=== PATIENT | male | born 1945 | race Caucasian/White ===

== ENCOUNTER 2025-06-24 15:02 | Inpatient (IN) ==
[2025-06-24 15:40] LABS: Hematocrit (blood only) 37.1 % (42.0-52.0); Hemoglobin 12.6 g/dl (14.0-18.0); Immature Granulocytes # (auto) 0.33 K/uL (0.01-0.20); Immature Granulocytes % (auto) 1.5 %; Mean Corpuscular Hemoglobin 30.3 pg (25.0-34.0); Mean Corpuscular Volume 89.2 fL (80.0-100.0); Platelet Count 249 K/uL (130-400); RDW Standard Deviation 46.0 fL (36.4-46.3); Red Blood Count 4.16 M/uL (4.70-6.10); White Blood Count 22.46 K/ul (4.8-10.8)
--- NOTE | 2025-06-24 15:40 | Emergency Department Note ---
Impression & Plan AMS (altered mental status), Hypoxia, SAVANNAH (acute kidney injury), Acute UTI (urinary tract infection), Hyponatremia ED Provider Note ED Provider Note NAME: KURT KENT AGE:80 SEX: Male : 1945 ARRIVES VIA: private vehicle INFORMANT: Patient, ED PROVIDER(s): Miya Ceballos DO CHIEF COMPLAINT: confusion HPI: This is a 80-year-old male brought in by his due to concern for worsening confusion and fatigue over the last 2 to 3 days. She states patient does occasionally fall although she had not witnessed any falls. She states today the confusion seemed worse and he did not recognize one of his grandchildren, and he seemed to be hallucinating. She states he was ill with a bad cold approximately 3 to 4 weeks ago but she thought that had improved. She had not noticed any recent respiratory distress. 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 She states he had not complained of anything recently. She states he also has a history of seizures for which he takes Keppra. She notes he has previously had hyponatremia as well. On arrival here patient notes his , knows he is at the "[facility]", and notes his own personal information. notes that he did have a recent dental cleaning and did take 4 tablets of amoxicillin prior to the cleaning which is his protocol. PAST MEDICAL HISTORY:See Below PAST SURGICAL HISTORY:See Below FAMILY HISTORY:See Below SOCIAL HISTORY:See Below HOME MEDICATIONS:See Below ALLERGIES:See Below VITALS:See Below PHYSICAL EXAMINATION: GENERAL: alert, well appearing, well nourished, no distress, non-toxic EYE EXAM: normal conjunctiva, PERRL and EOM's grossly intact OROPHARYNX: no exudate, no erythema, lips, buccal mucosa, and tongue normal and mucous membranes are dry NECK: supple, no nuchal rigidity, no adenopathy, non-tender LUNGS: Clear to auscultation. Normal chest wall mechanics, no w/r/r HEART: no murmurs, S1 normal and S2 normal ABDOMEN: abdomen soft, non-tender, normo-active bowel sounds, no masses, no rebound or guarding. BACK: Back is symmetrical on inspection and there is no deformity, no midline tenderness, no CVA tenderness. SKIN: no rashes, petechiae, orbruising UPPER EXTREMITIES: upper extremities are grossly normal. FROM, nml pulses b/l. LOWER EXTREMITIES: No pitting edema. FROM, nml pulses b/l. NEURO EXAM: Normal sensorium, cranial nerves II-XII grossly intact, normal speech, no facial droop,nogross weakness of arms, no gross weakness of legs. Gross sensation intact. No ataxia. Vital Signs: reviewed and remarkable Differential Diagnosis: dehydration, stroke, anemia, hypoglycemia, hyponatremia, hypernatremia, urinary tract infection, pneumonia, bronchitis, sepsis, gastroenteritis, additional abdominal pathology, metabolic abnormalities, as well as others were considered MEDICAL DECISION MAKING: This is a 80-year-old male presents to the emergency department due to concern for increased weakness, fatigue, and intermittent confusion per the . Patient unable to provide much history here although does deny any current pain, nausea, headache, or difficulty breathing. Patient noted to be tachycardic, tachypneic, and initially hypoxic. Once placed in bed, patient's hypoxia improved and he did not require any further oxygen supplementation. He was noted to be in atrial fibrillation on telemetry which the states is normal for him and he is anticoagulated. Labs drawn and sent including cultures, procalcitonin, lactic acid, IV established, EKG and chest x-ray performed at bedside and interpreted by me and the patient was monitored on telemetry. Patient was started on IV fluids per sepsis protocol. He was sent for CT of the head due to the reported confusion and concern for occult unwitnessed trauma. Patient noted to have acute kidney injury. CT of the abdomen and pelvis also performed once SAVANNAH was noted. Patient did receive 30 mL/KG of IV fluids. He was noted to have an elevated lactic acid, elevated procalcitonin, and significant leukocytosis. He was given empiric dose of IV cefepime. Patient was maintaining his MAP despite having soft blood pressures while in the emergency department. Heart rate improved. Repeat lactic acid was improved. Eventually urine was obtained and the patient did appear to be infected. Patient's family updated multiple times at bedside including and son. I did discuss case with on-call urology who is some to review the CT as well as radiology was concern for possible occult ureterolithiasis versus phlebolith on their radiology report. He did review the CT and we were able to find prior imaging in the [facility] system with the assistance of case mgmt for comparison and no prior nephrolithiasis noted. Case discussed with the hospitalist team for additional evaluation and management. Consultation(s): 1929: Discussed with Dr. Kwon, urology, via [facility]. 1956: Discussed with Dr. Merritt, [facility] hospitalist, for additional evaluation and management. ER Treatment Provided: See below Diagnostics Interpreted By Me: -ECG: Atrial fibrillation with a rate of 131, leftward axis, normal intervals, nonspecific ST/T wave changes -Cardiac Monitoring: An order was placed for continuous cardiac monitoring. The monitor shows a rate of 112 with a.fib rhythm. -Laboratory studies: As stated above and show below. -Imaging studies: ct head: no ich X-ray Chest: A single view study of the chest was reviewed and was negative for cardiomegaly, focal infiltrate, effusion, pulmonary edema, or wide mediastinum. Triage Nursing Note Reviewed Prior/Outside Records Reviewed -prior labs from 04/01/2025 at that time show a creatinine at 1.2. Critical Care: Critical care of 52 min performed to assess and manage high likelihood of life-threatening sepsis, involving labs and imaging performed with assessment to evaluate ams and weakness diagnosis with frequent reassessment. This time includes bedside time, treatment discussions with patient/family/consultants, documentation time and excludes procedure time. Past Med/Surg History Problem List (Updated 06/24/25 @ 22:07 by Miya Ceballos, ) Hyponatremia (Acute) Acute UTI (urinary tract infection) (Acute) SAVANNAH (acute kidney injury) (Acute) Hypoxia (Acute) AMS (altered mental status) (Acute) Social History Smoking Status: Never smoker Preferred Language: Andorran Feels Safe at Home: Yes Allergies Allergies Allergy/AdvReac Type Severity Reaction Status Date / Time No Known Allergies Allergy Unverified 06/24/25 15:45 Home Meds Home Medications Medication Instructions Recorded Confirmed apixaban 5 mg tablet (Eliquis) 5 mg PO BID 06/24/25 06/24/25 digoxin 125 mcg (0.125 mg) tablet 0.125 mg PO UD 06/24/25 06/24/25 famotidine 20 mg tablet 20 mg PO DAILY 06/24/25 06/24/25 furosemide 20 mg tablet 20 mg PO DAILY 06/24/25 06/24/25 levetiracetam 750 mg tablet 750 mg PO BID 06/24/25 06/24/25 levothyroxine 50 mcg tablet 50 mcg PO DAILY 06/24/25 06/24/25 lisinopril 5 mg tablet 5 mg PO DAILY 06/24/25 06/24/25 methotrexate sodium 2.5 mg tablet 2.5 mg PO UD 06/24/25 06/24/25 rosuvastatin 10 mg tablet 10 mg PO DAILY 06/24/25 06/24/25 Results & Data (ED) Vital Signs Vital Signs - 24 hr 06/24/25 15:07 06/24/25 15:48 06/24/25 16:04 Temperature 37.7 C H Temperature Source Oral Pulse Rate 133 H 101 H Pulse Rate [Apical] Pulse Rate from SpO2 Sensor Respiratory Rate 20 34 H Respiratory Effort / Characteristics Non-Labored Spontaneous Respiratory Depth Normal Blood Pressure 114/74 92/64 L Blood Pressure Mean 87 73 Pulse Oximetry 88 L 98 Oxygen Delivery Method Room Air Room Air Sepsis Recent Fever Within 48 Hours Yes Sepsis New/Unexplained Change in Mental Status Yes Sepsis Action Taken by Nursing Physician Notified 06/24/25 16:05 06/24/25 16:12 06/24/25 16:15 Temperature Temperature Source Pulse Rate 104 H 109 H Pulse Rate [Apical] Pulse Rate from SpO2 Sensor 114 H 180 H Respiratory Rate 33 H 32 H Respiratory Effort / Characteristics Respiratory Depth Blood Pressure Blood Pressure Mean Pulse Oximetry 97 95 84 L Oxygen Delivery Method Room Air Sepsis Recent Fever Within 48 Hours Sepsis New/Unexplained Change in Mental Status Sepsis Action Taken by Nursing 06/24/25 16:15 06/24/25 16:15 06/24/25 16:18 Temperature Temperature Source Pulse Rate 104 H Pulse Rate [Apical] Pulse Rate from SpO2 Sensor Respiratory Rate Respiratory Effort / Characteristics Respiratory Depth Blood Pressure 99/67 L 99/67 L Blood Pressure Mean 73 73 Pulse Oximetry Oxygen Delivery Method Sepsis Recent Fever Within 48 Hours Sepsis New/Unexplained Change in Mental Status Sepsis Action Taken by Nursing 06/24/25 16:24 06/24/25 16:46 06/24/25 16:46 Temperature Temperature Source Pulse Rate 93 H Pulse Rate [Apical] Pulse Rate from SpO2 Sensor 109 H Respiratory Rate 33 H Respiratory Effort / Characteristics Respiratory Depth Blood Pressure 95/66 L 95/66 L Blood Pressure Mean 79 79 Pulse Oximetry 87 L Oxygen Delivery Method Sepsis Recent Fever Within 48 Hours Sepsis New/Unexplained Change in Mental Status Sepsis Action Taken by Nursing 06/24/25 16:51 06/24/25 17:00 06/24/25 17:00 Temperature Temperature Source Pulse Rate Pulse Rate [Apical] Pulse Rate from SpO2 Sensor 101 H Respiratory Rate Respiratory Effort / Characteristics Respiratory Depth Blood Pressure 96/64 L 96/64 L Blood Pressure Mean 72 72 Pulse Oximetry 99 Oxygen Delivery Method Sepsis Recent Fever Within 48 Hours Sepsis New/Unexplained Change in Mental Status Sepsis Action Taken by Nursing 06/24/25 17:00 06/24/25 17:09 06/24/25 17:10 Temperature 39.3 C H Temperature Source Oral Pulse Rate 106 H Pulse Rate [Apical] Pulse Rate from SpO2 Sensor 105 H Respiratory Rate 35 H Respiratory Effort / Characteristics Respiratory Depth Blood Pressure 96/64 L Blood Pressure Mean 72 Pulse Oximetry 100 Oxygen Delivery Method Sepsis Recent Fever Within 48 Hours Sepsis New/Unexplained Change in Mental Status Sepsis Action Taken by Nursing 06/24/25 17:12 06/24/25 17:27 06/24/25 17:30 Temperature Temperature Source Pulse Rate 104 H 95 H Pulse Rate [Apical] Pulse Rate from SpO2 Sensor 94 H 101 H Respiratory Rate 34 H 33 H Respiratory Effort / Characteristics Respiratory Depth Blood Pressure 95/65 L Blood Pressure Mean 70 Pulse Oximetry 100 98 Oxygen Delivery Method Sepsis Recent Fever Within 48 Hours Sepsis New/Unexplained Change in Mental Status Sepsis Action Taken by Nursing 06/24/25 17:42 06/24/25 17:54 06/24/25 17:57 Temperature Temperature Source Pulse Rate 98 H 93 H 102 H Pulse Rate [Apical] Pulse Rate from SpO2 Sensor 101 H 99 H 99 H Respiratory Rate 30 H 33 H 34 H Respiratory Effort / Characteristics Respiratory Depth Blood Pressure Blood Pressure Mean Pulse Oximetry 97 97 98 Oxygen Delivery Method Sepsis Recent Fever Within 48 Hours Sepsis New/Unexplained Change in Mental Status Sepsis Action Taken by Nursing 06/24/25 18:00 06/24/25 18:00 06/24/25 18:00 Temperature Temperature Source Pulse Rate Pulse Rate [Apical] Pulse Rate from SpO2 Sensor Respiratory Rate Respiratory Effort / Characteristics Respiratory Depth Blood Pressure 84/56 L 84/56 L 84/56 L Blood Pressure Mean 61 61 61 Pulse Oximetry Oxygen Delivery Method Sepsis Recent Fever Within 48 Hours Sepsis New/Unexplained Change in Mental Status Sepsis Action Taken by Nursing 06/24/25 18:00 06/24/25 18:03 06/24/25 18:05 Temperature Temperature Source Pulse Rate 94 H Pulse Rate [Apical] Pulse Rate from SpO2 Sensor 96 H Respiratory Rate 29 H Respiratory Effort / Characteristics Respiratory Depth Blood Pressure 84/56 L 90/63 L Blood Pressure Mean 61 74 Pulse Oximetry 97 Oxygen Delivery Method Sepsis Recent Fever Within 48 Hours Sepsis New/Unexplained Change in Mental Status Sepsis Action Taken by Nursing 06/24/25 18:05 06/24/25 18:06 06/24/25 18:13 Temperature 37.8 C H Temperature Source Oral Pulse Rate 85 Pulse Rate [Apical] 88 Pulse Rate from SpO2 Sensor 87 Respiratory Rate 30 H Respiratory Effort / Characteristics Respiratory Depth Blood Pressure 90/63 L Blood Pressure Mean 74 Pulse Oximetry 97 Oxygen Delivery Method Sepsis Recent Fever Within 48 Hours Sepsis New/Unexplained Change in Mental Status Sepsis Action Taken by Nursing 06/24/25 18:15 06/24/25 18:15 06/24/25 18:15 Temperature Temperature Source Pulse Rate Pulse Rate [Apical] Pulse Rate from SpO2 Sensor Respiratory Rate Respiratory Effort / Characteristics Respiratory Depth Blood Pressure 87/55 L 87/55 L 87/55 L Blood Pressure Mean 63 63 63 Pulse Oximetry Oxygen Delivery Method Sepsis Recent Fever Within 48 Hours Sepsis New/Unexplained Change in Mental Status Sepsis Action Taken by Nursing 06/24/25 18:27 06/24/25 18:30 06/24/25 18:30 Temperature Temperature Source Pulse Rate 91 H Pulse Rate [Apical] Pulse Rate from SpO2 Sensor 89 Respiratory Rate 30 H Respiratory Effort / Characteristics Respiratory Depth Blood Pressure 91/57 L 91/57 L Blood Pressure Mean 64 64 Pulse Oximetry 98 Oxygen Delivery Method Sepsis Recent Fever Within 48 Hours Sepsis New/Unexplained Change in Mental Status Sepsis Action Taken by Nursing 06/24/25 18:30 06/24/25 18:30 06/24/25 18:30 Temperature Temperature Source Pulse Rate 86 Pulse Rate [Apical] Pulse Rate from SpO2 Sensor 90 Respiratory Rate 31 H Respiratory Effort / Characteristics Respiratory Depth Blood Pressure 91/57 L 91/57 L Blood Pressure Mean 64 64 Pulse Oximetry 96 Oxygen Delivery Method Sepsis Recent Fever Within 48 Hours Sepsis New/Unexplained Change in Mental Status Sepsis Action Taken by Nursing 06/24/25 18:33 06/24/25 18:45 06/24/25 19:00 Temperature Temperature Source Pulse Rate 88 89 Pulse Rate [Apical] Pulse Rate from SpO2 Sensor 91 H Respiratory Rate 33 H 28 H Respiratory Effort / Characteristics Respiratory Depth Blood Pressure 87/57 L 91/60 L Blood Pressure Mean 66 70 Pulse Oximetry 98 98 Oxygen Delivery Method Sepsis Recent Fever Within 48 Hours Sepsis New/Unexplained Change in Mental Status Sepsis Action Taken by Nursing 06/24/25 19:08 06/24/25 19:45 06/24/25 20:10 Temperature 36.7 C Temperature Source Oral Pulse Rate 89 88 Pulse Rate [Apical] Pulse Rate from SpO2 Sensor Respiratory Rate 26 H Respiratory Effort / Characteristics Respiratory Depth Blood Pressure 94/60 L Blood Pressure Mean 69 Pulse Oximetry 95 Oxygen Delivery Method Sepsis Recent Fever Within 48 Hours Sepsis New/Unexplained Change in Mental Status Sepsis Action Taken by Nursing 06/24/25 20:17 06/24/25 21:41 Temperature Temperature Source Pulse Rate 83 88 Pulse Rate [Apical] Pulse Rate from SpO2 Sensor Respiratory Rate 28 H 28 H Respiratory Effort / Characteristics Respiratory Depth Blood Pressure 101/63 99/65 L Blood Pressure Mean 75 76 Pulse Oximetry 98 100 Oxygen Delivery Method Sepsis Recent Fever Within 48 Hours Sepsis New/Unexplained Change in Mental Status Sepsis Action Taken by Nursing Laboratory Data 06/24/25 15:26 06/24/25 15:26 Lab Results 06/24/25 06/24/25 06/24/25 Range/Units 15:26 15:30 15:56 WBC 22.46 H (4.8-10.8) K/ul RBC 4.16 L (4.70-6.10) M/uL Hgb 12.6 L (14.0-18.0) g/dl POC Hgb 13.9 L (14.0-18.0) g/dl Hct 37.1 L (42.0-52.0) % POC Hct 41 L (42-52) % MCV 89.2 (80.0-100.0) fL MCH 30.3 (25.0-34.0) pg MCHC 34.0 (32.0-36.0) g/dL RDW Std Deviation 46.0 (36.4-46.3) fL RDW Coeff of Maria Del Carmen 14.3 (11.5-14.5) % Plt Count 249 (130-400) K/uL MPV 10.4 (9.4-12.4) fL Immature Gran % (Auto) 1.5 % Neut % (Auto) 85.3 % Lymph % (Auto) 2.7 % Payne % (Auto) 10.3 % Eos % (Auto) 0.0 % Baso % (Auto) 0.2 % Neut # (Auto) 19.14 H (1.40-6.50) K/uL Lymph # (Auto) 0.61 L (1.20-3.40) K/uL Payne # (Auto) 2.32 H (0.11-0.59) K/uL Eos # (Auto) 0.01 (0.00-0.50) K/uL Baso # (Auto) 0.05 (0.00-0.20) K/uL Immature Gran # (Auto) 0.33 H (0.01-0.20) K/uL PT 15.5 H (9.0-12.0) Seconds INR 1.5 H (0.9-1.1) POC Sodium 132 L (135-144) mmol/L Sodium 131 L (136-145) mmol/L POC Potassium 4.8 (3.3-5.0) mmol/L Potassium 4.7 (3.5-5.1) mmol/L POC Chloride 102 (101-112) mmol/L Chloride 98 (98-107) mmol/L Carbon Dioxide 22 (21-32) mmol/L POC Total CO2 21 L (24-31) mmol/L Anion Gap 11 (3-11) POC Anion Gap 16.0 (16-25) mmol/L POC BUN 41 H (7-18) mg/dl BUN 46 H (6-23) mg/dl Creatinine 2.90 H (0.6-1.4) mg/dl POC Creatinine 3.1 H (0.6-1.3) mg/dl Est Cr Clr Drug Dosing Not Reportable eGFR 21.34 BUN/Creatinine Ratio 15.9 (10-20) Glucose 117 H (70-99(Fasting)) mg/dl POC Glucose (other) 115 H (70-99) mg/dl Lactate 3.6 H* (0.4-2.0) mmol/L Calcium 9.1 (8.6-10.3) mg/dl POC Ioniz Calcium Eloise 1.09 L (1.12-1.32) mmol/l Magnesium 1.8 (1.7-2.4) mg/dl Total Bilirubin 2.4 H (0.2-1.0) mg/dl Direct Bilirubin 0.7 H (0-0.2) mg/dl AST 19 (13-39) U/L ALT 18 (7-52) U/L Alkaline Phosphatase 137 H (34-104) U/L Troponin I High Sens 33.6 H (0-20) pg/ml Total Protein 7.6 (6.0-8.3) gm/dl Albumin 3.7 (3.4-5.0) gm/dl Procalcitonin 5.44 H (0-0.5) ng/ml Urine Color Urine Appearance (Clear) Urine pH (4.5-7.5) Ur Specific Hollister (1.000-1.030) Urine Protein (Negative) Urine Glucose (UA) (Negative) Urine Ketones (Negative) Urine Blood (Negative) Urine Nitrite (Negative) Urine Bilirubin (Negative) Urine Urobilinogen (Negative) Ur Leukocyte Esterase (Negative) Urine WBC (Auto) (0-5) /hpf Urine RBC (Auto) (0-2) /hpf U Hyaline Cast (Auto) (0-2) /lpf U Epithel Cells (Auto) (0-2) /hpf Urine Bacteria (Auto) (None Seen) Hyaline Casts (None Presnt) /lpf Urine Comment Adenovirus (PCR) Not Detected (NotDetected) B. pertussis DNA (PCR) Not Detected (NotDetected) B.parapertussis DNA PCR Not Detected (NotDetected) C. pneumoniae DNA (PCR) Not Detected (NotDetected) Coronavirus OC43 (PCR) Not Detected (NotDetected) Coronavirus HKU1 (PCR) Not Detected (NotDetected) Coronavirus 229E (PCR) Not Detected (NotDetected) SARS-CoV-2 (PCR) Not Detected (NotDetected) Coronavirus NL63 (PCR) Not Detected (NotDetected) Human Metapneumovir PCR Not Detected (NotDetected) Influenza Type A (PCR) Not Detected (NotDetected) Influenza Type B (PCR) Not Detected (NotDetected) M. pneumoniae (PCR) Not Detected (NotDetected) Parainfluenza 1 (PCR) Not Detected (NotDetected) Parainfluenza 2 (PCR) Not Detected (NotDetected) Parainfluenza 3 (PCR) Not Detected (NotDetected) Parainfluenza 4 (PCR) Not Detected (NotDetected) RSV (PCR) Not Detected (NotDetected) Entero/Rhino (PCR) Not Detected (NotDetected) 06/24/25 06/24/25 Range/Units 17:54 18:41 WBC (4.8-10.8) K/ul RBC (4.70-6.10) M/uL Hgb (14.0-18.0) g/dl POC Hgb (14.0-18.0) g/dl Hct (42.0-52.0) % POC Hct (42-52) % MCV (80.0-100.0) fL MCH (25.0-34.0) pg MCHC (32.0-36.0) g/dL RDW Std Deviation (36.4-46.3) fL RDW Coeff of Maria Del Carmen (11.5-14.5) % Plt Count (130-400) K/uL MPV (9.4-12.4) fL Immature Gran % (Auto) % Neut % (Auto) % Lymph % (Auto) % Payne % (Auto) % Eos % (Auto) % Baso % (Auto) % Neut # (Auto) (1.40-6.50) K/uL Lymph # (Auto) (1.20-3.40) K/uL Payne # (Auto) (0.11-0.59) K/uL Eos # (Auto) (0.00-0.50) K/uL Baso # (Auto) (0.00-0.20) K/uL Immature Gran # (Auto) (0.01-0.20) K/uL PT (9.0-12.0) Seconds INR (0.9-1.1) POC Sodium (135-144) mmol/L Sodium (136-145) mmol/L POC Potassium (3.3-5.0) mmol/L Potassium (3.5-5.1) mmol/L POC Chloride (101-112) mmol/L Chloride (98-107) mmol/L Carbon Dioxide (21-32) mmol/L POC Total CO2 (24-31) mmol/L Anion Gap (3-11) POC Anion Gap (16-25) mmol/L POC BUN (7-18) mg/dl BUN (6-23) mg/dl Creatinine (0.6-1.4) mg/dl POC Creatinine (0.6-1.3) mg/dl Est Cr Clr Drug Dosing eGFR BUN/Creatinine Ratio (10-20) Glucose (70-99(Fasting)) mg/dl POC Glucose (other) (70-99) mg/dl Lactate 1.2 (0.4-2.0) mmol/L Calcium (8.6-10.3) mg/dl POC Ioniz Calcium Eloise (1.12-1.32) mmol/l Magnesium (1.7-2.4) mg/dl Total Bilirubin (0.2-1.0) mg/dl Direct Bilirubin (0-0.2) mg/dl AST (13-39) U/L ALT (7-52) U/L Alkaline Phosphatase (34-104) U/L Troponin I High Sens 33.8 H (0-20) pg/ml Total Protein (6.0-8.3) gm/dl Albumin (3.4-5.0) gm/dl Procalcitonin (0-0.5) ng/ml Urine Color Dark Yellow Urine Appearance Turbid A (Clear) Urine pH 5.5 (4.5-7.5) Ur Specific Hollister 1.014 (1.000-1.030) Urine Protein 2+ H (Negative) Urine Glucose (UA) Negative (Negative) Urine Ketones Negative (Negative) Urine Blood 2+ H (Negative) Urine Nitrite Positive A (Negative) Urine Bilirubin Negative (Negative) Urine Urobilinogen Negative (Negative) Ur Leukocyte Esterase 3+ H (Negative) Urine WBC (Auto) >50 H (0-5) /hpf Urine RBC (Auto) 0-2 (0-2) /hpf U Hyaline Cast (Auto) 11-20 H (0-2) /lpf U Epithel Cells (Auto) 0-2 (0-2) /hpf Urine Bacteria (Auto) 3+ H (None Seen) Hyaline Casts Present A (None Presnt) /lpf Urine Comment Adenovirus (PCR) (NotDetected) B. pertussis DNA (PCR) (NotDetected) B.parapertussis DNA PCR (NotDetected) C. pneumoniae DNA (PCR) (NotDetected) Coronavirus OC43 (PCR) (NotDetected) Coronavirus HKU1 (PCR) (NotDetected) Coronavirus 229E (PCR) (NotDetected) SARS-CoV-2 (PCR) (NotDetected) Coronavirus NL63 (PCR) (NotDetected) Human Metapneumovir PCR (NotDetected) Influenza Type A (PCR) (NotDetected) Influenza Type B (PCR) (NotDetected) M. pneumoniae (PCR) (NotDetected) Parainfluenza 1 (PCR) (NotDetected) Parainfluenza 2 (PCR) (NotDetected) Parainfluenza 3 (PCR) (NotDetected) Parainfluenza 4 (PCR) (NotDetected) RSV (PCR) (NotDetected) Entero/Rhino (PCR) (NotDetected) Administered Medications Lactated Ringer's (Lr) 1,000 mls @ 125 mls/hr IV .Q8H CLARE Stop: 06/27/25 20:14 Last Admin: 06/24/25 20:11 Dose: 125 mls/hr Documented By: mls Discontinued Medications Cefepime HCl (Maxipime 2000mg) 2,000 mg in 20 mls @ 5 mls/min IV NOW STA; Protocol Stop: 06/24/25 15:27 Last Admin: 06/24/25 15:45 Dose: 5 mls/min Documented By: BS Sodium Chloride (Nss) 1,000 mls @ 999 mls/hr IV .Q1H1M ONE Stop: 06/24/25 16:49 Last Infusion: 06/24/25 18:15 Dose: Infused Documented By: Admin: 06/24/25 16:06 Dose: 999 mls/hr Documented By: BS Lactated Ringer's (Lr) 1,000 mls @ 999 mls/hr IV .Q1H1M ONE Stop: 06/24/25 17:47 Last Infusion: 06/24/25 18:44 Dose: Infused Documented By: Admin: 06/24/25 17:06 Dose: 999 mls/hr Documented By: BS Acetaminophen (Ofirmev) 1,000 mg in 100 mls @ 400 mls/hr IV NOW STA Stop: 06/24/25 17:25 Last Infusion: 06/24/25 18:15 Dose: Infused Documented By: Admin: 06/24/25 17:15 Dose: 400 mls/hr Documented By: JAMES Lactated Ringer's (Lr) 1,000 mls @ 999 mls/hr IV .Q1H1M ONE Stop: 06/24/25 19:22 Last Infusion: 06/24/25 20:09 Dose: Infused Documented By: Admin: 06/24/25 18:44 Dose: 999 mls/hr Documented By: WALT Daptomycin 500 mg/ Syringe 10 mls @ 5 mls/min IV NOW ONE; Protocol Stop: 06/24/25 21:00 Last Admin: 06/24/25 21:30 Dose: 5 mls/min Documented By: MANDY Levetiracetam (Levetiracetam 500 Mg/5 Ml Vial) 500 mg IV NOW STA Stop: 06/24/25 20:48 Last Admin: 06/24/25 21:29 Dose: 500 mg Documented By: MANDY Imaging Data Radiologist's Impression: Chest X-Ray 06/24/25 15:24 Clinical History: Sepsis Technique: A frontal view of the chest was obtained Findings: There are no confluent pulmonary infiltrates. The heart size is within normal limits. No pleural effusion or pneumothorax is seen. There is no definite pulmonary nodule. No fracture is noted. There is a right chest wall pacemaker device. Sternal wires are present. There is mild elevation of the right hemidiaphragm Impression: No active disease Electronically signed by Maurice Haskins 06-24-2025 4:[address] 06/24/25 15:26 CT HEAD: HISTORY: Altered mental status TECHNIQUE: Noncontrast CT examination of the head is performed. Coronal and sagittal reformats were created. COMPARISON: None FINDINGS: There is no evidence of intracranial hemorrhage, focal mass effect or midline shift. No fluid collection is identified. The ventricular system is midline and symmetric. No evidence of acute major vascular territory infarction. Age-related involutional changes of the brain and chronic white matter ischemic changes. No calvarial fracture is identified. No right frontal christie hole. The paranasal sinuses and mastoids are well aerated. IMPRESSION: No acute intracranial process identified. Chronic findings as above Electronically signed by Moy Perez 06-24-2025 5:[address] 06/24/25 15:28 CT CERVICAL THORACIC LUMBAR SPINE WITHOUT CONTRAST: HISTORY: PAIN TECHNIQUE: Noncontrast CT examination of the cervical spine is performed. Coronal and sagittal reformats were created. COMPARISON: None. FINDINGS: CERVICAL SPINE: There is no significant vertebral body height loss. No acute traumatic fracture identified. There is no significant spondylolisthesis. Multilevel degenerative changes characterized by disc osteophyte complex, bilateral facet and uncovertebral hypertrophy resulting and neural foraminal narrowing at multiple levels, worst at mid to lower spine. Visualized soft tissues of neck are unremarkable. Visualized lung apex is clear. IMPRESSION: No acute traumatic fracture of the cervical spine. Multilevel degenerative changes as above "box Electronically signed by Moy Perez 06-24-2025 5:[address] 06/24/25 15:28 CT MAXILLOFACIAL WITHOUT CONTRAST: HISTORY: PAIN TECHNIQUE: Noncontrast CT examination of the face is performed. Coronal and sagittal reformats were created. COMPARISON: None. FINDINGS: No acute traumatic facial fracture is identified. The paranasal sinuses and mastoids are well aerated. IMPRESSION: No acute traumatic facial fracture is identified. Electronically signed by Moy Perez 06-24-2025 5:13 PM Abdomen/Pelvis CT 06/24/25 15:49 EXAMINATION: CT of the abdomen and pelvis performed without contrast TECHNIQUE: Helical CT images from the lung bases through the symphysis pubis were obtained without contrast. Coronal and sagittal reformatted images were generated at a workstation for further assessment. Dose reduction techniques were achieved by using automatic exposure control and/or adjustment of mA and/or kV according to patient size and/or use of iterative reconstruction technique. COMPARISON: None HISTORY: Abdominal pain FINDINGS: Lower chest: No consolidation. No pleural effusion or pneumothorax. Cardiomegaly. Aortic valve replacement. AICD leads in place.Coronary artery calcifications or stents. Liver: No suspicious liver lesions. Gallbladder: Few small calcified gallstones. No evidence of acute cholecystitis. Spleen: Normal size. Pancreas: No suspicious pancreatic lesions. The pancreatic duct is not dilated. Adrenal glands: No adrenal nodules. Kidneys: Moderate bilateral hydroureteronephrosis is noted, greater on the left compared to the right. In the pelvis, visualization is limited due to streak artifact from bilateral hip arthroplasty. A calcified stone in the left pelvis on image 85, is indeterminate for a ureteral stone or pelvic phlebolith. There is also a stone in the right pelvis on image 85, measuring 2 mm or less there is indeterminate. Correlate with pain. Bladder / Pelvic organs: The urinary bladder is moderately distended, and the wall appears irregular and trabeculated with small diverticula, compatible with history of chronic outlet obstruction.. Bowel: No bowel obstruction. No abnormal bowel wall thickening. The appendix is unremarkable. Lymph nodes: No retroperitoneal, mesenteric, or pelvic lymphadenopathy. Peritoneum / Retroperitoneum: No free fluid or air within the abdomen. Vessels: No infrarenal aortic aneurysm. Bones and soft tissues: No suspicious lesion in the bones. IMPRESSION: Moderate bilateral hydroureteronephrosis, as above. 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 There are calcifications bilaterally in the pelvis, that are indeterminant for ureteral stones or pelvic phleboliths. Correlate with a history of pain. Electronically signed by Aftab Haq 06-24-2025 5:33 PM Discharge Plan Visit Data Chief Complaint: Shortness of Breath/Dyspnea Stated Complaint: MENTAL CONFUSION SOB BLOODY NOSE ED Provider: Miya Ceballos Discharge Problem: AMS (altered mental status), Hypoxia, SAVANNAH (acute kidney injury), Acute UTI (urinary tract infection), Hyponatremia Patient Disposition: Being Evaluated by Hospitalist Condition: Fair Forms Stand Alone Forms: My [facility] Prescriptions Prescriptions: No Action famotidine 20 mg tablet 20 mg PO DAILY methotrexate sodium 2.5 mg tablet 2.5 mg PO UD levothyroxine 50 mcg tablet 50 mcg PO DAILY levetiracetam 750 mg tablet 750 mg PO BID lisinopril 5 mg tablet 5 mg PO DAILY digoxin 125 mcg (0.125 mg) tablet 0.125 mg PO UD furosemide 20 mg tablet 20 mg PO DAILY rosuvastatin 10 mg tablet 10 mg PO DAILY Eliquis 5 mg tablet 5 mg PO BID Referrals Referrals: [facility] [Non-Staff] -
[2025-06-24] MEDS: CEFEPIME 2000MG 2,000 MG/20 ML SYR IV STA (15:45)
[2025-06-24 15:58] LABS: Alanine Aminotransferase 18 U/L (7-52); Albumin Level 3.7 gm/dl (3.4-5.0); Alkaline Phosphatase 137 U/L (34-104); Anion Gap 11 (3-11); Bilirubin,Total 2.4 mg/dl (0.2-1.0); Blood Urea Nitrogen 46 mg/dl (6-23); Calcium 9.1 mg/dl (8.6-10.3); Carbon Dioxide 22 mmol/L (21-32); Chloride 98 mmol/L (98-107); Glucose 117 mg/dl (70-99(Fasting)); Magnesium 1.8 mg/dl (1.7-2.4); Potassium 4.7 mmol/L (3.5-5.1); Sodium 131 mmol/L (136-145); Total Protein 7.6 gm/dl (6.0-8.3)
--- NOTE | 2025-06-24 16:01 | XRay Report ---
Clinical History: Sepsis Technique: A frontal view of the chest was obtained Findings: There are no confluent pulmonary infiltrates. The heart size is within normal limits. No pleural effusion or pneumothorax is seen. There is no definite pulmonary nodule. No fracture is noted. There is a right chest wall pacemaker device. Sternal wires are present. There is mild elevation of the right hemidiaphragm Impression: No active disease Electronically signed by Maurice Haskins 06-24-2025 4:00 PM
[2025-06-24] MEDS: SODIUM CHLORIDE 0.9% 1,000 ML IV ONE (16:06)
[2025-06-24 16:44] LABS: INR 1.5 (0.9-1.1); Prothrombin Time 15.5 Seconds (9.0-12.0)
[2025-06-24 16:54] LABS: Chlamydia pneumoniae PCR Not Detected (NotDetected); Coronavirus 229E PCR Not Detected (NotDetected); Coronavirus CoV-2 (COVID19)PCR Not Detected (NotDetected); Coronavirus HKU1 PCR Not Detected (NotDetected); Coronavirus NL63 PCR Not Detected (NotDetected); Coronavirus OC43PCR Not Detected (NotDetected); Human Metapneumovirus PCR Not Detected (NotDetected); Parainfluenza Virus 1 PCR Not Detected (NotDetected); Parainfluenza Virus 2 PCR Not Detected (NotDetected); Parainfluenza Virus 3 PCR Not Detected (NotDetected); Parainfluenza Virus 4 PCR Not Detected (NotDetected); Respiratory Syncytial VirusPCR Not Detected (NotDetected); Rhinovirus/Enterovirus PCR Not Detected (NotDetected)
[2025-06-24] MEDS: LACTATED RINGER'S 1,000 ML IV ONE ×2 (17:06→18:44)
--- NOTE | 2025-06-24 17:13 | CT Scan Report ---
CT MAXILLOFACIAL WITHOUT CONTRAST: HISTORY: PAIN TECHNIQUE: Noncontrast CT examination of the face is performed. Coronal and sagittal reformats were created. COMPARISON: None. FINDINGS: No acute traumatic facial fracture is identified. The paranasal sinuses and mastoids are well aerated. IMPRESSION: No acute traumatic facial fracture is identified. Electronically signed by Moy Perez 06-24-2025 5:13 PM
--- NOTE | 2025-06-24 17:13 | CT Scan Report ---
CT HEAD: HISTORY: Altered mental status TECHNIQUE: Noncontrast CT examination of the head is performed. Coronal and sagittal reformats were created. COMPARISON: None FINDINGS: There is no evidence of intracranial hemorrhage, focal mass effect or midline shift. No fluid collection is identified. The ventricular system is midline and symmetric. No evidence of acute major vascular territory infarction. Age-related involutional changes of the brain and chronic white matter ischemic changes. No calvarial fracture is identified. No right frontal christie hole. The paranasal sinuses and mastoids are well aerated. IMPRESSION: No acute intracranial process identified. Chronic findings as above Electronically signed by Moy Perez 06-24-2025 5:13 PM
--- NOTE | 2025-06-24 17:13 | CT Scan Report ---
CT CERVICAL THORACIC LUMBAR SPINE WITHOUT CONTRAST: HISTORY: PAIN TECHNIQUE: Noncontrast CT examination of the cervical spine is performed. Coronal and sagittal reformats were created. COMPARISON: None. FINDINGS: CERVICAL SPINE: There is no significant vertebral body height loss. No acute traumatic fracture identified. There is no significant spondylolisthesis. Multilevel degenerative changes characterized by disc osteophyte complex, bilateral facet and uncovertebral hypertrophy resulting and neural foraminal narrowing at multiple levels, worst at mid to lower spine. Visualized soft tissues of neck are unremarkable. Visualized lung apex is clear. IMPRESSION: No acute traumatic fracture of the cervical spine. Multilevel degenerative changes as above "box Electronically signed by Moy Perez 06-24-2025 5:13 PM
[2025-06-24] MEDS: ACETAMINOPHEN 1,000 MG/100 ML VIAL IV STA (17:15)
--- NOTE | 2025-06-24 17:34 | CT Scan Report ---
EXAMINATION: CT of the abdomen and pelvis performed without contrast TECHNIQUE: Helical CT images from the lung bases through the symphysis pubis were obtained without contrast. Coronal and sagittal reformatted images were generated at a workstation for further assessment. Dose reduction techniques were achieved by using automatic exposure control and/or adjustment of mA and/or kV according to patient size and/or use of iterative reconstruction technique. COMPARISON: None HISTORY: Abdominal pain FINDINGS: Lower chest: No consolidation. No pleural effusion or pneumothorax. Cardiomegaly. Aortic valve replacement. AICD leads in place.Coronary artery calcifications or stents. Liver: No suspicious liver lesions. Gallbladder: Few small calcified gallstones. No evidence of acute cholecystitis. Spleen: Normal size. Pancreas: No suspicious pancreatic lesions. The pancreatic duct is not dilated. Adrenal glands: No adrenal nodules. Kidneys: Moderate bilateral hydroureteronephrosis is noted, greater on the left compared to the right. In the pelvis, visualization is limited due to streak artifact from bilateral hip arthroplasty. A calcified stone in the left pelvis on image 85, is indeterminate for a ureteral stone or pelvic phlebolith. There is also a stone in the right pelvis on image 85, measuring 2 mm or less there is indeterminate. Correlate with pain. Bladder / Pelvic organs: The urinary bladder is moderately distended, and the wall appears irregular and trabeculated with small diverticula, compatible with history of chronic outlet obstruction.. Bowel: No bowel obstruction. No abnormal bowel wall thickening. The appendix is unremarkable. Lymph nodes: No retroperitoneal, mesenteric, or pelvic lymphadenopathy. Peritoneum / Retroperitoneum: No free fluid or air within the abdomen. Vessels: No infrarenal aortic aneurysm. Bones and soft tissues: No suspicious lesion in the bones. IMPRESSION: Moderate bilateral hydroureteronephrosis, as above. 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 There are calcifications bilaterally in the pelvis, that are indeterminant for ureteral stones or pelvic phleboliths. Correlate with a history of pain. Electronically signed by Aftab Haq 06-24-2025 5:33 PM
[2025-06-24 19:13] LABS: Appearance Urine Turbid (Clear); Bacteria Urine Automated 3+ (None Seen); Epithelial Cell Urine Auto 0-2 /hpf (0-2); Glucose Urine UA Negative (Negative); RBC Urine Automated 0-2 /hpf (0-2); WBC Urine Automated >50 /hpf (0-5)
[2025-06-24] MEDS: LACTATED RINGER'S 1,000 ML IV SCH (20:11)
[2025-06-24] MEDS: DAPTOmycin 500 MG in SYRINGE 0 ML IV ONE (21:30)
--- NOTE | 2025-06-24 22:45 | History & Physical Report ---
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 As per for last 3 days patient was very fatigued. Was feeling weak but he was working in the back yard. Last night he had epistaxis but that got resolved. Today planned to go to football match but patient seemed confused. He seemed picking up things in the air. He could not get up and walk and was feeling short of breath when patient was brought to the ER. In the ER patient was initially tachycardic, tachypneic and hypoxic. With oxygen his hypoxia improved. Patient was hypotensive and improved with a fluid bolus. His WBC was 22. Initial lactic acid 3.6 and repeat is 1.2. Procalcitonin 5.4. UA was positive. Having SAVANNAH with creatinine of 2.9. Respiratory bio fire negative. CT of abdomen pelvis showed moderate bilateral hydroureteronephrosis and a question of ureteral stones. ER discussed CT scan findings with urology on-call and seems reviewed images and recommended to notify them again if Patient condition deteriorates.Patient is alert and awake and oriented. Could tell his name. Could tell his date of . Knows that he is in the hospital. Could tell current month and year but took some time. Denies any headache. Denies chest pain. No runny nose or sore throat. No cough. Denies abdominal pain. states patient micturates frequently and in small amounts. Has some loose stools today. In the ER he was spiking temperature. Currently his blood pressure and heart rates improved. Severe sepsis From acute UTI Immunocompromised state as patient on methotrexate Presents with tachycardia, tachypnea, hypotension, hypoxia and fever WBC 22. Procalcitonin 5.4. Troponin 33. INR 1.5 Initial lactic acid 3.6 and repeat 1.2 UA is positive Respiratory BioFire negative CT abdomen pelvis showing moderate bilateral hydroureteronephrosis. Question of indeterminant for ureteral stones. Urology aware Valladares ordered in er Received cefepime and 3 L fluid bolus Blood pressure and tachycardia improved. Oxygenating okay currently Will Closely monitor the hemodynamics If worsening will notify urology again Will continue with cefepime and Dapto with renal dosing and adjust the dosing as renal function improves Will follow the cultures IV fluids at 125 mill per hour and later chnaged to 80ml/hr Closely monitoring in telemetry SAVANNAH Presented with creatinine 2.9 Baseline creatinine 1.2-1.4 Mostly from sepsis Hold lisinopril and Lasix Avoid nephrotoxic agents Will follow repeat labs Hyponatremia Sodium 131 Will follow labs Elevated troponin Troponin 33.6 and repeat is 33.8 Mostly demand ischemia from sepsis Will follow serial enzymes Elevated LFTs Total bilirubin 2.4. 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 Right ventricle cavity severely dilated. Right ventricular systolic function is severely reduced. Significant aortic valve regurgitation is absent. Severe tricuspid regurgitation is present. Holding Lasix Getting fluids Will monitor for volume overload DVT prophylaxis On Eliquis which is held currently and will resume as soon as possibe scds Disposition Telemetry Full code. 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 As per for last 3 days patient was very fatigued. Was feeling weak but he was working in the back yard. Last night he had epistaxis but that got resolved. Today planned to go to football match but patient seemed confused. He seemed picking up things in the air. He could not get up and walk and was feeling short of breath when patient was brought to the ER. In the ER patient was initially tachycardic, tachypneic and hypoxic. With oxygen his hypoxia improved. Patient was hypotensive and improved with a fluid bolus. His WBC was 22. Initial lactic acid 3.6 and repeat is 1.2. Procalcitonin 5.4. UA was positive. Having SAVANNAH with creatinine of 2.9. Respiratory bio fire negative. CT of abdomen pelvis showed moderate bilateral hydroureteronephrosis and a question of ureteral stones. ER discussed CT scan findings with urology on-call and seems reviewed images and recommended to notify them again if Patient condition deteriorates.Patient is alert and awake and oriented. Could tell his name. Could tell his date of . Knows that he is in the hospital. Could tell current month and year but took some time. Denies any headache. Denies chest pain. No runny nose or sore throat. No cough. Denies abdominal pain. states patient micturates frequently and in small amounts. Has some loose stools today. In the ER he was spiking temperature. Currently his blood pressure and heart rates improved. Past medical history. As mentioned above. Past surgical history. Carpal tunnel surgery. Left and right heart catheterization. Pacemaker insertion. Left inguinal hernia repair. Replacement aortic valve percutaneous.. Bilateral total hip replacement. Social history. . No smoking. No alcohol use. No drug use. Family history. Brother had diabetes. Allergies Allergy/AdvReac Type Severity Reaction Status Date / Time No Known Allergies Allergy Unverified 06/24/25 15:45 Home Medications Medication Instructions Recorded Confirmed Type apixaban 5 mg tablet (Eliquis) 5 mg PO BID 06/24/25 06/24/25 History digoxin 125 mcg (0.125 mg) tablet 0.125 mg PO UD 06/24/25 06/24/25 History famotidine 20 mg tablet 20 mg PO DAILY 06/24/25 06/24/25 History furosemide 20 mg tablet 20 mg PO DAILY 06/24/25 06/24/25 History levetiracetam 750 mg tablet 750 mg PO BID 06/24/25 06/24/25 History levothyroxine 50 mcg tablet 50 mcg PO DAILY 06/24/25 06/24/25 History lisinopril 5 mg tablet 5 mg PO DAILY 06/24/25 06/24/25 History methotrexate sodium 2.5 mg tablet 2.5 mg PO UD 06/24/25 06/24/25 History rosuvastatin 10 mg tablet 10 mg PO DAILY 06/24/25 06/24/25 History Past Med/Surg History Problem List (Updated 06/25/25 @ 00:40 by Background Dastephani) Severe sepsis Hyponatremia (Acute) Acute UTI (urinary tract infection) (Acute) SAVANNAH (acute kidney injury) (Acute) Hypoxia (Acute) AMS (altered mental status) (Acute) Social History Smoking Status: Never smoker Hx Alcohol Use: No Hx Substance Use: No Preferred Language: Irish Communication Ability: Effective Gasoline Engine Inspector Required: No Beliefs That Will Affect Care: None Current Living Situation: Spouse Feels Safe at Home: Yes Safety Concerns: Feels Safe At This Time Assistive Devices: Cane and Walker Review of Systems Review of Systems: All systems reviewed & are unremarkable except as noted in HPI & below Physical Exam Physical Exam: General-Not in distress. Head- atraumatic Eyes- PERRL. ENT- oropharynx clear Neck- supple, no JVD. Lungs- clear to auscultation no wheezing or crackles Heart- regular rhythm; no murmur, no gallop. Abdomen- normal bowel sounds, soft, nontender, no distension Extremities- no pretibial edema, no erythema seen. right leg short and atrophied. Has right foot drop. Neuro- alert, oriented x 3; PERRL, no facial palsy; no dysarthria; moves extremities Results & Data Results & Data Vital Signs (Past 12 Hours) Vital Signs Temp Pulse Pulse Resp BP Pulse Ox O2 Del Method 06/24/25 20:17 83 28 H 101/63 98 06/24/25 20:10 88 06/24/25 19:45 89 26 H 94/60 L 95 06/24/25 19:08 36.7 C 06/24/25 19:00 89 28 H 91/60 L 98 06/24/25 18:45 87/57 L 06/24/25 18:33 88 33 H 98 06/24/25 18:30 86 31 H 96 06/24/25 18:30 91/57 L 06/24/25 18:30 91/57 L 06/24/25 18:30 91/57 L 06/24/25 18:30 91/57 L 06/24/25 18:27 91 H 30 H 98 06/24/25 18:15 87/55 L 06/24/25 18:15 87/55 L 06/24/25 18:15 87/55 L 06/24/25 18:13 37.8 C H 88 06/24/25 18:06 85 30 H 97 06/24/25 18:05 90/63 L 06/24/25 18:05 90/63 L 06/24/25 18:03 94 H 29 H 97 06/24/25 18:00 84/56 L 06/24/25 18:00 84/56 L 06/24/25 18:00 84/56 L 06/24/25 18:00 84/56 L 06/24/25 17:57 102 H 34 H 98 06/24/25 17:54 93 H 33 H 97 06/24/25 17:42 98 H 30 H 97 06/24/25 17:30 95/65 L 06/24/25 17:27 95 H 33 H 98 06/24/25 17:12 104 H 34 H 100 06/24/25 17:10 39.3 C H 06/24/25 17:09 106 H 35 H 100 06/24/25 17:00 96/64 L 06/24/25 17:00 96/64 L 06/24/25 17:00 96/64 L 06/24/25 16:51 99 06/24/25 16:46 95/66 L 06/24/25 16:46 95/66 L 06/24/25 16:24 93 H 33 H 87 L 06/24/25 16:18 104 H 06/24/25 16:15 99/67 L 06/24/25 16:15 99/67 L 06/24/25 16:15 109 H 32 H 84 L 06/24/25 16:12 104 H 33 H 95 06/24/25 16:05 97 Room Air 06/24/25 16:04 98 Room Air 06/24/25 15:48 101 H 34 H 92/64 L 06/24/25 15:07 37.7 C H 133 H 20 114/74 88 L Room Air Diagnostic Findings Laboratory Results WBC 22.46 K/ul (4.8-10.8) H 06/24/25 15: RBC 4.16 M/uL (4.70-6.10) L 06/24/25 15: Hgb 12.6 g/dl (14.0-18.0) L 06/24/25 15: POC Hgb 13.9 g/dl (14.0-18.0) L 06/24/25 15:30 Hct 37.1 % (42.0-52.0) L 06/24/25 15: POC Hct 41 % (42-52) L 06/24/25 15: MCV 89.2 fL (80.0-100.0) 06/24/25 15: MCH 30.3 pg (25.0-34.0) 06/24/25 15: MCHC 34.0 g/dL (32.0-36.0) 06/24/25 15: RDW Std Deviation 46.0 fL (36.4-46.3) 06/24/25 15: RDW Coeff of Maria [place] Carmen 14.3 % (11.5-14.5) 06/24/25 15: Plt Count 249 K/uL (130-400) 06/24/25 15: MPV 10.4 fL (9.4-12.4) 06/24/25 15: Immature Gran % (Auto) 1.5 % 06/24/25 15: Neut % (Auto) 85.3 % 06/24/25 15: Lymph % (Auto) 2.7 % 06/24/25 15: [place] % (Auto) 10.3 % 06/24/25 15: Eos % (Auto) 0.0 % 06/24/25 15: Baso % (Auto) 0.2 % 06/24/25: Neut # (Auto) 19.14 K/uL (1.40-6.50) H 06/24/25 15: Lymph # (Auto) 0.61 K/uL (1.20-3.40) L 06/24/25 15: [place] # (Auto) 2.32 K/uL (0.11-0.59) H 06/24/25 15: Eos # (Auto) 0.01 K/uL (0.00-0.50) 06/24/25 15: Baso # (Auto) 0.05 K/uL (0.00-0.20) 06/24/25 15: Immature Gran # (Auto) 0.33 K/uL (0.01-0.20) H 06/24/25 15: PT 15.5 Seconds (9.0-12.0) H 06/24/25 15: INR 1.5 (0.9-1.1) H 06/24/25 15: POC Sodium 132 mmol/L (135-144) L 06/24/25 15:30 Sodium 131 mmol/L (136-145) L 06/24/25 15:26 POC Potassium 4.8 mmol/L (3.3-5.0) 06/24/25 15:30 Potassium 4.7 mmol/L (3.5-5.1) 06/24/25 15: POC Chloride 102 mmol/L (101-112) 06/24/25 15:30 Chloride 98 mmol/L (98-107) 06/24/25 15: Carbon Dioxide 22 mmol/L (21-32) 06/24/25 15: POC Total CO2 21 mmol/L (24-31) L 06/24/25 15:30 Anion Gap 11 (3-11) 06/24/25 15: POC Anion Gap 16.0 mmol/L (16-25) 06/24/25 15:30 POC BUN 41 mg/dl (7-18) H 06/24/25 15:30 BUN 46 mg/dl (6-23) H 06/24/25 15:26 Creatinine 2.90 mg/dl (0.6-1.4) H 06/24/25 15:26 POC Creatinine 3.1 mg/dl (0.6-1.3) H 06/24/25 15:30 Est Cr Clr Drug Dosing Not Reportable 06/24/25 15:26 eGFR 21.34 06/24/25 15:26 BUN/Creatinine Ratio 15.9 (10-20) 06/24/25 15:26 Glucose 117 mg/dl (70-99(Fasting)) H 06/24/25 15:26 POC Glucose (other) 115 mg/dl (70-99) H 06/24/25 15:30 Lactate 1.2 mmol/L (0.4-2.0) 06/24/25 17:54 Calcium 9.1 mg/dl (8.6-10.3) 06/24/25 15:26 POC Ioniz Calcium Eloise 1.09 mmol/l (1.12-1.32) L 06/24/25 15:30 Magnesium 1.8 mg/dl (1.7-2.4) 06/24/25 15:26 Total Bilirubin 2.4 mg/dl (0.2-1.0) H 06/24/25 15: Direct Bilirubin 0.7 mg/dl (0-0.2) H 06/24/25 15:26 AST 19 U/L (13-39) 06/24/25 15:26 ALT 18 U/L (7-52) 06/24/25 15:26 Alkaline Phosphatase 137 U/L (34-104) H 06/24/25 15:26 Troponin I High Sens 33.8 pg/ml (0-20) H 06/24/25 17:54 Total Protein 7.6 gm/dl (6.0-8.3) 06/24/25 15:26 Albumin 3.7 gm/dl (3.4-5.0) 06/24/25 15:26 Procalcitonin 5.44 ng/ml (0-0.5) H 06/24/25 15:26 Urine Color Dark Yellow 06/24/25 18:41 Urine Appearance Turbid (Clear) A 06/24/25 18:41 Urine pH 5.5 (4.5-7.5) 06/24/25 18:41 Ur Specific [place] 1.014 (1.000-1.030) 06/24/25 18:41 Urine Protein 2+ (Negative) H 06/24/25 18:41 Urine Glucose (UA) Negative (Negative) 06/24/25 18:41 Urine Ketones Negative (Negative) 06/24/25 18:41 Urine Blood 2+ (Negative) H 06/24/25 18:41 Urine Nitrite Positive (Negative) A 06/24/25 18:41 Urine Bilirubin Negative (Negative) 06/24/25 18:41 Urine Urobilinogen Negative (Negative) 06/24/25 18:41 Ur Leukocyte Esterase 3+ (Negative) H 06/24/25 18:41 Urine WBC (Auto) >50 /hpf (0-5) H 06/24/25 18:41 Urine RBC (Auto) 0-2 /hpf (0-2) 06/24/25 18:41 U Hyaline Cast (Auto) 11-20 /lpf (0-2) H 06/24/25 18:41 U Epithel Cells (Auto) 0-2 /hpf (0-2) 06/24/25 18:41 Urine Bacteria (Auto) 3+ (None Seen) H 06/24/25 18:41 Hyaline Casts Present /lpf (None Presnt) A 06/24/25 18:41 Urine Comment 06/24/25 18:41 Adenovirus (PCR) Not Detected (NotDetected) 06/24/25 15:56 B. pertussis DNA (PCR) Not Detected (NotDetected) 06/24/25 15:56 B.parapertussis DNA PCR Not Detected (NotDetected) 06/24/25 15:56 C. pneumoniae DNA (PCR) Not Detected (NotDetected) 06/24/25 15:56 Coronavirus OC43 (PCR) Not Detected (NotDetected) 06/24/25 15:56 Coronavirus HKU1 (PCR) Not Detected (NotDetected) 06/24/25 15:56 Coronavirus 229E (PCR) Not Detected (NotDetected) 06/24/25 15:56 SARS-CoV-2 (PCR) Not Detected (NotDetected) 06/24/25 15:56 Coronavirus NL63 (PCR) Not Detected (NotDetected) 06/24/25 15:56 Human Metapneumovir PCR Not Detected (NotDetected) 06/24/25 15:56 Influenza Type A (PCR) Not Detected (NotDetected) 06/24/25 15:56 Influenza Type B (PCR) Not Detected (NotDetected) 06/24/25 15:56 M. pneumoniae (PCR) Not Detected (NotDetected) 06/24/25 15:56 Parainfluenza 1 (PCR) Not Detected (NotDetected) 06/24/25 15:56 Parainfluenza 2 (PCR) Not Detected (NotDetected) 06/24/25 15:56 Parainfluenza 3 (PCR) Not Detected (NotDetected) 06/24/25 15:56 Parainfluenza 4 (PCR) Not Detected (NotDetected) 06/24/25 15:56 RSV (PCR) Not Detected (NotDetected) 06/24/25 15:56 Entero/Rhino (PCR) Not Detected (NotDetected) 06/24/25 15:56 Impressions Chest X-Ray 06/24/25 15:24 Clinical History: Sepsis Technique: A frontal view of the chest was obtained Findings: There are no confluent pulmonary infiltrates. The heart size is within normal limits. No pleural effusion or pneumothorax is seen. There is no definite pulmonary nodule. No fracture is noted. There is a right chest wall pacemaker device. Sternal wires are present. There is mild elevation of the right hemidiaphragm Impression: No active disease Electronically signed by Maurice Haskins 06-24-2025 4:[address] 06/24/25 15:26 CT HEAD: HISTORY: Altered mental status TECHNIQUE: Noncontrast CT examination of the head is performed. Coronal and sagittal reformats were created. COMPARISON: None FINDINGS: There is no evidence of intracranial hemorrhage, focal mass effect or midline shift. No fluid collection is identified. The ventricular system is midline and symmetric. No evidence of acute major vascular territory infarction. Age-related involutional changes of the brain and chronic white matter ischemic changes. No calvarial fracture is identified. No right frontal christie hole. The paranasal sinuses and mastoids are well aerated. IMPRESSION: No acute intracranial process identified. Chronic findings as above Electronically signed by Moy Perez 06-24-2025 5:[address] 06/24/25 15:28 CT CERVICAL THORACIC LUMBAR SPINE WITHOUT CONTRAST: HISTORY: PAIN TECHNIQUE: Noncontrast CT examination of the cervical spine is performed. Coronal and sagittal reformats were created. COMPARISON: None. FINDINGS: CERVICAL SPINE: There is no significant vertebral body height loss. No acute traumatic fracture identified. There is no significant spondylolisthesis. Multilevel degenerative changes characterized by disc osteophyte complex, bilateral facet and uncovertebral hypertrophy resulting and neural foraminal narrowing at multiple levels, worst at mid to lower spine. Visualized soft tissues of neck are unremarkable. Visualized lung apex is clear. IMPRESSION: No acute traumatic fracture of the cervical spine. Multilevel degenerative changes as above "box Electronically signed by Moy Perez 06-24-2025 5:[address] 06/24/25 15:28 CT MAXILLOFACIAL WITHOUT CONTRAST: HISTORY: PAIN TECHNIQUE: Noncontrast CT examination of the face is performed. Coronal and sagittal reformats were created. COMPARISON: None. FINDINGS: No acute traumatic facial fracture is identified. The paranasal sinuses and mastoids are well aerated. IMPRESSION: No acute traumatic facial fracture is identified. Electronically signed by Moy Perez 06-24-2025 5:13 PM Abdomen/Pelvis CT 06/24/25 15:49 EXAMINATION: CT of the abdomen and pelvis performed without contrast TECHNIQUE: Helical CT images from the lung bases through the symphysis pubis were obtained without contrast. Coronal and sagittal reformatted images were generated at a workstation for further assessment. Dose reduction techniques were achieved by using automatic exposure control and/or adjustment of mA and/or kV according to patient size and/or use of iterative reconstruction technique. COMPARISON: None HISTORY: Abdominal pain FINDINGS: Lower chest: No consolidation. No pleural effusion or pneumothorax. Cardiomegaly. Aortic valve replacement. AICD leads in place.Coronary artery calcifications or stents. Liver: No suspicious liver lesions. Gallbladder: Few small calcified gallstones. No evidence of acute cholecystitis. Spleen: Normal size. Pancreas: No suspicious pancreatic lesions. The pancreatic duct is not dilated. Adrenal glands: No adrenal nodules. Kidneys: Moderate bilateral hydroureteronephrosis is noted, greater on the left compared to the right. In the pelvis, visualization is limited due to streak artifact from bilateral hip arthroplasty. A calcified stone in the left pelvis on image 85, is indeterminate for a ureteral stone or pelvic phlebolith. There is also a stone in the right pelvis on image 85, measuring 2 mm or less there is indeterminate. Correlate with pain. Bladder / Pelvic organs: The urinary bladder is moderately distended, and the wall appears irregular and trabeculated with small diverticula, compatible with history of chronic outlet obstruction.. Bowel: No bowel obstruction. No abnormal bowel wall thickening. The appendix is unremarkable. Lymph nodes: No retroperitoneal, mesenteric, or pelvic lymphadenopathy. Peritoneum / Retroperitoneum: No free fluid or air within the abdomen. Vessels: No infrarenal aortic aneurysm. Bones and soft tissues: No suspicious lesion in the bones. IMPRESSION: Moderate bilateral hydroureteronephrosis, as above. 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 There are calcifications bilaterally in the pelvis, that are indeterminant for ureteral stones or pelvic phleboliths. Correlate with a history of pain. Electronically signed by Aftab Haq 06-24-2025 5:33 PM ECG Additional Comments: ECG. Atrial fibrillation with rapid ventricular response rate of 131. Left axis deviation. QTc 413. Code Status & VTE Plan VTE Prophylaxis Plan VTE Prophylaxis will be ordered: Yes
[2025-06-25] MEDS ORDERED: ONDANSETRON INJ 2 MG/ML 2 ML VIAL IV PRN (00:41)
[2025-06-25] MEDS ORDERED: NITROGLYCERIN SL 0.4 MG/TAB TAB SL PRN (00:41)
[2025-06-25] MEDS: SODIUM CHLORIDE 0.9% 1,000 ML IV SCH (01:00)
[2025-06-25] MEDS: CEFEPIME 1000MG 1,000 MG/10 ML SYR IV SCH (03:14)
[2025-06-25 04:08] LABS: A calco-baum cmplx NotReported Not Detected (NotDetected); Bact fragilis Not Reported Not Detected (NotDetected); Blood Culture Id Panel See PCR Comment (NotDetected); C auris Not Reported Not Detected (NotDetected); CTX-M Resistant Gene Not Detected (NotDetected); Calbicans Not Reported Not Detected (NotDetected); Candida glabrata Not Reported Not Detected (NotDetected); Candida krusei Not Reported Not Detected (NotDetected); Cneoformans/gatti Not Reported Not Detected (NotDetected); Cparapsilosis Not Reported Not Detected (NotDetected); Ctropicalis Not Reported Not Detected (NotDetected); E cloacae compx Not Reported Not Detected (NotDetected); Efaecalis Not Reported Not Detected (NotDetected); Efaecium Not Reported Not Detected (NotDetected); Enterobacterales DETECTED (NotDetected); Enterobacterales Not Reported DETECTED (NotDetected); Escherichia coli Not Reported DETECTED (NotDetected); H influenzae Not Reported Not Detected (NotDetected); IMP Resistant Gene Not Detected (NotDetected); K aerogenes Not Reported Not Detected (NotDetected); KPC Resistant Gene Not Detected (NotDetected); Koxytoca Not Reported Not Detected (NotDetected); Kpneumoniae grp Not Reported Not Detected (NotDetected); Lmonocyt Not Reported Not Detected (NotDetected); N meningitidis Not Reported Not Detected (NotDetected); NDM Resistant Gene Not Detected (NotDetected); OXA 48 Like Resistant Gene Not Detected (NotDetected); P aeruginosa Not Reported Not Detected (NotDetected); Proteus spp Not Reported Not Detected (NotDetected); Salmonella spp Not Reported Not Detected (NotDetected); Staph lugdunensis Not Reported Not Detected (NotDetected); Staph spp. Not Reported Not Detected (NotDetected); Staphaureus Not Reported Not Detected (NotDetected); Staphepi Not Reported Not Detected (NotDetected); Stenmaltophilia Not Reported Not Detected (NotDetected); Strep agal(GrpB) Not Reported Not Detected (NotDetected); Strep pneum Not Reported Not Detected (NotDetected); Strep pyog (GrpA) Not Reported Not Detected (NotDetected); Strep spp Not Reported Not Detected (NotDetected); VIM Resistant Gene Not Detected (NotDetected); mcr-1 Colistin Resistant Gene Not Detected (NotDetected)
[2025-06-25] MEDS: LEVOTHYROXINE SODIUM 50 MCG TABLET PO SCH (05:43)
[2025-06-25 06:58] LABS: Hematocrit (blood only) 34.2 % (42.0-52.0); Hemoglobin 11.2 g/dl (14.0-18.0); Immature Granulocytes # (auto) 0.14 K/uL (0.01-0.20); Immature Granulocytes % (auto) 0.9 %; Mean Corpuscular Hemoglobin 29.8 pg (25.0-34.0); Mean Corpuscular Volume 91.0 fL (80.0-100.0); Platelet Count 180 K/uL (130-400); RDW Standard Deviation 47.8 fL (36.4-46.3); Red Blood Count 3.76 M/uL (4.70-6.10); White Blood Count 15.66 K/ul (4.8-10.8)
[2025-06-25 07:12] LABS: Anion Gap 9.0 (3-11); Blood Urea Nitrogen 41.0 mg/dl (6-23); Calcium 8.2 mg/dl (8.6-10.3); Carbon Dioxide 22.0 mmol/L (21-32); Chloride 104.0 mmol/L (98-107); Creatinine Clr Calc Pharmacy 24.7 ml/min; Glucose 85.0 mg/dl (70-99(Fasting)); Magnesium 1.8 mg/dl (1.7-2.4); Potassium 4.2 mmol/L (3.5-5.1); Sodium 135.0 mmol/L (136-145)
--- NOTE | 2025-06-25 07:21 | Electrocardiogram Report ---
Test Reason : Blood Pressure : */* mmHG Vent. Rate : 131 BPM Atrial Rate : * BPM P-R Int : * ms QRS Dur : 80 ms QT Int : 280 ms P-R-T Axes : * -59 110 degrees QTcB Int : 413 ms Atrial fibrillation with rapid ventricular response Left axis deviation Low voltage QRS Anterior infarct Abnormal ECG No previous ECGs available Confirmed by Cecil Wang ([id number]) on 06/25/2025 7:21:06 AM Referred By: Confirmed By: Cecil Wang
[2025-06-25] MEDS: FAMOTIDINE 20 MG TAB PO SCH (08:11)
[2025-06-25] MEDS: ROSUVASTATIN CALCIUM 10 MG TAB PO SCH (08:12)
[2025-06-25 08:24] LABS: Alanine Aminotransferase 12.0 U/L (7-52); Albumin Level 3.0 gm/dl (3.4-5.0); Alkaline Phosphatase 119.0 U/L (34-104); Bilirubin,Total 1.7 mg/dl (0.2-1.0); Total Protein 6.0 gm/dl (6.0-8.3)
--- NOTE | 2025-06-25 08:54 | Hospitalist Progress Note ---
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 As per for last 3 days patient was very fatigued. Was feeling weak but he was working in the back yard. Last night he had epistaxis but that got resolved. Today planned to go to football match but patient seemed confused. He seemed picking up things in the air. He could not get up and walk and was feeling short of breath when patient was brought to the ER. In the ER patient was initially tachycardic, tachypneic and hypoxic. With oxygen his hypoxia improved. Patient was hypotensive and improved with a fluid bolus. His WBC was 22. Initial lactic acid 3.6 and repeat is 1.2. Procalcitonin 5.4. UA was positive. Having SAVANNAH with creatinine of 2.9. Respiratory bio fire negative. CT of abdomen pelvis showed moderate bilateral hydroureteronephrosis and a question of ureteral stones. ER discussed CT scan findings with urology on-call and seems reviewed images and recommended to notify them again if Patient condition deteriorates.Patient is alert and awake and oriented. Could tell his name. Could tell his date of . Knows that he is in the hospital. Could tell current month and year but took some time. Denies any headache. Denies chest pain. No runny nose or sore throat. No cough. Denies abdominal pain. states patient micturates frequently and in small amounts. Has some loose stools today. In the ER he was spiking temperature. Currently his blood pressure and heart rates improved. Severe sepsis Bacteremia, Gram negat. From acute UTI Immunocompromised state as patient on methotrexate Presents with tachycardia, tachypnea, hypotension, hypoxia and fever WBC 22. Procalcitonin 5.4. Troponin 33. INR 1.5 Initial lactic acid 3.6 and repeat 1.2 UA is positive Ucultx + E.coli Blood cultx - posit. for gram negat. bacilli Respiratory BioFire negative CT abdomen pelvis showing moderate bilateral hydroureteronephrosis. Question of indeterminant for ureteral stones. Urology aware Valladares ordered in ER Received cefepime and 3 L fluid bolus Blood pressure and tachycardia improved. Oxygenating okay currently Will Closely monitor the hemodynamics If worsening will notify urology again Will continue with cefepime and Dapto with renal dosing and adjust the dosing as renal function improves Will follow the cultures Closely monitoring in telemetry 06/25 Blood cultx posit. Will repeat cultx. WBC down from 22k to 15 k. Cont. abx, follow cultx SAVANNAH Presented with creatinine 2.9 --> now improved to 2.2 Baseline creatinine 1.2-1.4 Mostly from sepsis Hold lisinopril and Lasix Avoid nephrotoxic agents Will follow repeat labs Hyponatremia Sodium 131 on admission Now Na 135 Will follow labs Elevated troponin Troponin 33.6 and repeat is 33.8 Mostly demand ischemia from sepsis Will follow serial enzymes Elevated LFTs Total bilirubin 2.4. 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 On digoxin 3 times a week On Eliquis - resume as no procedure planned at this time Will closely monitor History of partial complex seizures On Keppra 750 mg twice daily at home Adjusted to IV Keppra 500 mg twice daily renal dosing Hypothyroidism On Synthyroid Hyperlipidemia On statin M[place] TEND[employer] [place]ARM [place] vasculitis On methotrexate which he takes once a week on Thursday Currently will hold for sepsis Hypertension Currently in sepsis will hold lisinopril GERD On famotidine CAD status post PCI to LAD Eliquis and statin History of heart failure with reduced EF but normalized of 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 Right ventricle cavity severely dilated. Right ventricular systolic function is severely reduced. Significant aortic valve regurgitation is absent. Severe tricuspid regurgitation is present. Holding Lasix Getting fluids Will monitor for volume overload DVT prophylaxis - Eliquis scds Disposition - Telemetry Full code. Admission and Anticipated Discharge Date Admission Date: June 24, 2025 Subjective Pt seen in follow up of sepsis, UTI, bacteremia In ED also found in Afib w/RVR, pt has hx of chronic afib Urology was consulted in ED given abnormal CT images Currently pt is sitting up in bed in NAD, reports feeling somewhat better. He knows he is in the hospital, and can tell me that he was going to [place] but then fell. Currently denies any chest pain, shortness of breath, or abdominal pain, does not have flank pain. Review of Systems Review of Systems: All systems reviewed & are unremarkable except as noted in Subjective Physical Exam Physical Exam: General- WD/WN elderly M Not in distress. Head- atraumatic Eyes- PERRL. Neck- supple, no JVD. Lungs- clear to auscultation no wheezing or crackles Heart- regular rhythm; no murmur Abdomen- normal bowel sounds, soft, nontender, no distension Extremities- no pretibial edema, no erythema seen. (right leg short and atrophied. Has right foot drop.- per previous provider) Neuro- alert, oriented x 3; PERRL, no facial palsy; no dysarthria; moves extremities Results & Data Results & Data Vital Signs (Past 12 Hours) Vital Signs Temp Pulse Pulse Resp BP BP Pulse Ox 06/25/25 08:15 36.6 C 98 H 18 116/71 97 06/25/25 07:16 90 06/25/25 02:31 36.7 C 75 18 113/69 97 06/25/25 00:41 06/25/25 00:41 91 H 06/25/25 00:26 36.7 C 95 H 16 141/63 H 99 06/24/25 23:18 80 20 82/59 L 99 06/24/25 21:41 88 28 H 99/65 L 100 O2 Del Method 06/25/25 08:15 Room Air 06/25/25 07:16 06/25/25 02:31 Room Air 06/25/25 00:41 Room Air 06/25/25 00:41 06/25/25 00:26 Room Air 06/24/25 23:18 06/24/25 21:41 Laboratory Results 06/25/25 06/25/25 06/25/25 Range/Units 06:40 06:39 05:37 WBC 15.66 H Cancelled (4.8-10.8) K/ul RBC 3.76 L Cancelled (4.70-6.10) M/uL Hgb 11.2 L Cancelled (14.0-18.0) g/dl POC Hgb (14.0-18.0) g/dl Hct 34.2 L Cancelled (42.0-52.0) % POC Hct (42-52) % MCV 91.0 Cancelled (80.0-100.0) fL MCH 29.8 Cancelled (25.0-34.0) pg MCHC 32.7 Cancelled (32.0-36.0) g/dL RDW Std Deviation 47.8 H Cancelled (36.4-46.3) fL RDW Coeff of Maria Del Carmen 14.4 Cancelled (11.5-14.5) % Plt Count 180 Cancelled (130-400) K/uL MPV 10.8 Cancelled (9.4-12.4) fL Immature Gran % (Auto) 0.9 Cancelled % Neut % (Auto) 85.3 Cancelled % Lymph % (Auto) 2.6 Cancelled % [facility] % (Auto) 10.6 Cancelled % Eos % (Auto) 0.3 Cancelled % Baso % (Auto) 0.3 Cancelled % Neut # (Auto) 13.37 H Cancelled (1.40-6.50) K/uL Lymph # (Auto) 0.40 L Cancelled (1.20-3.40) K/uL [facility] # (Auto) 1.66 H Cancelled (0.11-0.59) K/uL Eos # (Auto) 0.05 Cancelled (0.00-0.50) K/uL Baso # (Auto) 0.04 Cancelled (0.00-0.20) K/uL Immature Gran # (Auto) 0.14 Cancelled (0.01-0.20) K/uL Absolute Nucleated RBC Cancelled Nucleated RBC % (auto) Cancelled Neutrophils % (Manual) Cancelled Band Neutrophils % Cancelled Lymphocytes % (Manual) Cancelled Prolymphocyte % Cancelled Reactive Lymphs % (Man) Cancelled Monocytes % (Manual) Cancelled Eosinophils % (Manual) Cancelled Basophils % (Manual) Cancelled Metamyelocytes % (Man) Cancelled Myelocytes % (Man) Cancelled Promyelocytes % (Man) Cancelled Blast Cells % (Manual) Cancelled Plasma Cell % (Manual) Cancelled Other Cells % Cancelled Nucleated RBC % Cancelled Neutrophils # (Manual) Cancelled Band Neutrophils # Cancelled Total Absolute Neuts Cancelled Lymphocytes # (Manual) Cancelled Prolymphocyte # Cancelled Reactive Lymphs # Cancelled Total Abs Lymphocytes Cancelled Monocytes # (Manual) Cancelled Eosinophils # (Manual) Cancelled Basophils # (Manual) Cancelled Metamyelocytes # (Man) Cancelled Myelocytes # (Manual) Cancelled Promyelocytes # (Man) Cancelled Blast Cells # (Man) Cancelled Plasma Cell # (Manual) Cancelled Other Cells # Cancelled Nucleated RBCs # (Man) Cancelled Hypersegmented Neuts Cancelled Hyposegmented Neuts Cancelled Hypogranular Neuts Cancelled Large Granular Lymphs Cancelled # Lrg Granular Lymphs Cancelled Hairy Cells Cancelled Smudge Cells Cancelled Toxic Granulation Cancelled Toxic Vacuolation Cancelled Dohle Bodies Cancelled Zachary Rods Cancelled Platelet Estimate Cancelled Hypogranular Platelets Cancelled Giant Platelets Cancelled Platelet Satelliting Cancelled RBC Morphology Cancelled Polychromasia Cancelled Hypochromasia Cancelled Poikilocytosis Cancelled Basophilic Stippling Cancelled Anisocytosis Cancelled Microcytosis Cancelled Macrocytosis Cancelled Spherocytes Cancelled Pappenheimer Bodies Cancelled Sickle Cells Cancelled Target Cells Cancelled Tear Drop Cells Cancelled Ovalocytes Cancelled Stomatocytes Cancelled Alvarez-[place] Bodies Cancelled Echinocytes Cancelled Acanthocytes (Spur) Cancelled Rouleaux Cancelled RBC Agglutinates Cancelled Schistocytes Cancelled Sezary Cell Cancelled PT (9.0-12.0) Seconds INR (0.9-1.1) POC Sodium (135-144) mmol/L Sodium 135 L Cancelled (136-145) mmol/L POC Potassium (3.3-5.0) mmol/L Potassium 4.2 Cancelled (3.5-5.1) mmol/L POC Chloride (101-112) mmol/L Chloride 104 Cancelled (98-107) mmol/L Carbon Dioxide 22 Cancelled (21-32) mmol/L POC Total CO2 (24-31) mmol/L Anion Gap 9 Cancelled (3-11) POC Anion Gap (16-25) mmol/L POC BUN (7-18) mg/dl BUN 41 H Cancelled (6-23) mg/dl Creatinine 2.27 H D Cancelled (0.6-1.4) mg/dl POC Creatinine (0.6-1.3) mg/dl Est Cr Clr Drug Dosing 24.7 Cancelled eGFR 28.63 Cancelled BUN/Creatinine Ratio 18.1 Cancelled (10-20) Glucose 85 Cancelled (70-99(Fasting)) mg/dl POC Glucose (other) (70-99) mg/dl Lactate (0.4-2.0) mmol/L Calcium 8.2 L Cancelled (8.6-10.3) mg/dl POC Ioniz Calcium Eloise (1.12-1.32) mmol/l Magnesium 1.8 Cancelled (1.7-2.4) mg/dl Total Bilirubin 1.7 H (0.2-1.0) mg/dl Direct Bilirubin 0.6 H (0-0.2) mg/dl AST 17 (13-39) U/L ALT 12 (7-52) U/L Alkaline Phosphatase 119 H (34-104) U/L Troponin I High Sens 19.5 D Cancelled (0-20) pg/ml Total Protein 6.0 D (6.0-8.3) gm/dl Albumin 3.0 L (3.4-5.0) gm/dl Procalcitonin (0-0.5) ng/ml Urine Color Urine Appearance (Clear) Urine pH (4.5-7.5) Ur Specific [place] (1.000-1.030) Urine Protein (Negative) Urine Glucose (UA) (Negative) Urine Ketones (Negative) Urine Blood (Negative) Urine Nitrite (Negative) Urine Bilirubin (Negative) Urine Urobilinogen (Negative) Ur Leukocyte Esterase (Negative) Urine WBC (Auto) (0-5) /hpf Urine RBC (Auto) (0-2) /hpf U Hyaline Cast (Auto) (0-2) /lpf U Epithel Cells (Auto) (0-2) /hpf Urine Bacteria (Auto) (None Seen) Hyaline Casts (None Presnt) /lpf Urine Comment Nasal Screen MRSA (PCR) (Negative) Adenovirus (PCR) (NotDetected) B. pertussis DNA (PCR) (NotDetected) B.parapertussis DNA PCR (NotDetected) C. pneumoniae DNA (PCR) (NotDetected) Coronavirus OC43 (PCR) (NotDetected) Coronavirus HKU1 (PCR) (NotDetected) Coronavirus 229E (PCR) (NotDetected) SARS-CoV-2 (PCR) (NotDetected) Coronavirus NL63 (PCR) (NotDetected) Enterobacterales (PCR) (NotDetected) E. coli (PCR) (NotDetected) Human Metapneumovir PCR (NotDetected) Influenza Type A (PCR) (NotDetected) Influenza Type B (PCR) (NotDetected) M. pneumoniae (PCR) (NotDetected) Parainfluenza 1 (PCR) (NotDetected) Parainfluenza 2 (PCR) (NotDetected) Parainfluenza 3 (PCR) (NotDetected) Parainfluenza 4 (PCR) (NotDetected) RSV (PCR) (NotDetected) Entero/Rhino (PCR) (NotDetected) mcr-1 Colistin Res Gene PCR (NotDetected) blaIMP Car res Gene PCR (NotDetected) KPC-Carbap Res Gene PCR (NotDetected) blaNDM Car Res Gene PCR (NotDetected) OXA-48 Carbapenem Resis Gene (PCR) (NotDetected) blaVIM Car Res Gene PCR (NotDetected) CTX-M Gene Resistance (PCR) (NotDetected) Bld Cult ID Panel PCR (NotDetected) Blood Parasites ID Cancelled 06/25/25 06/24/25 06/24/25 Range/Units 01:20 18:41 17:54 WBC (4.8-10.8) K/ul RBC (4.70-6.10) M/uL Hgb (14.0-18.0) g/dl POC Hgb (14.0-18.0) g/dl Hct (42.0-52.0) % POC Hct (42-52) % MCV (80.0-100.0) fL MCH (25.0-34.0) pg MCHC (32.0-36.0) g/dL RDW Std Deviation (36.4-46.3) fL RDW Coeff of Maria [place] Carmen (11.5-14.5) % Plt Count (130-400) K/uL MPV (9.4-12.4) fL Immature Gran % (Auto) % Neut % (Auto) % Lymph % (Auto) % [facility] % (Auto) % Eos % (Auto) % Baso % (Auto) % Neut # (Auto) (1.40-6.50) K/uL Lymph # (Auto) (1.20-3.40) K/uL [facility] # (Auto) (0.11-0.59) K/uL Eos # (Auto) (0.00-0.50) K/uL Baso # (Auto) (0.00-0.20) K/uL Immature Gran # (Auto) (0.01-0.20) K/uL Absolute Nucleated RBC Nucleated RBC % (auto) Neutrophils % (Manual) Band Neutrophils % Lymphocytes % (Manual) Prolymphocyte % Reactive Lymphs % (Man) Monocytes % (Manual) Eosinophils % (Manual) Basophils % (Manual) Metamyelocytes % (Man) Myelocytes % (Man) Promyelocytes % (Man) Blast Cells % (Manual) Plasma Cell % (Manual) Other Cells % Nucleated RBC % Neutrophils # (Manual) Band Neutrophils # Total Absolute Neuts Lymphocytes # (Manual) Prolymphocyte # Reactive Lymphs # Total Abs Lymphocytes Monocytes # (Manual) Eosinophils # (Manual) Basophils # (Manual) Metamyelocytes # (Man) Myelocytes # (Manual) Promyelocytes # (Man) Blast Cells # (Man) Plasma Cell # (Manual) Other Cells # Nucleated RBCs # (Man) Hypersegmented Neuts Hyposegmented Neuts Hypogranular Neuts Large Granular Lymphs # Lrg Granular Lymphs Hairy Cells Smudge Cells Toxic Granulation Toxic Vacuolation Dohle Bodies Zachary Rods Platelet Estimate Hypogranular Platelets Giant Platelets Platelet Satelliting RBC Morphology Polychromasia Hypochromasia Poikilocytosis Basophilic Stippling Anisocytosis Microcytosis Macrocytosis Spherocytes Pappenheimer Bodies Sickle Cells Target Cells Tear Drop Cells Ovalocytes Stomatocytes Alvarez-[place] Bodies Echinocytes Acanthocytes (Spur) Rouleaux RBC Agglutinates Schistocytes Sezary Cell PT (9.0-12.0) Seconds INR (0.9-1.1) POC Sodium (135-144) mmol/L Sodium (136-145) mmol/L POC Potassium (3.3-5.0) mmol/L Potassium (3.5-5.1) mmol/L POC Chloride (101-112) mmol/L Chloride (98-107) mmol/L Carbon Dioxide (21-32) mmol/L POC Total CO2 (24-31) mmol/L Anion Gap (3-11) POC Anion Gap (16-25) mmol/L POC BUN (7-18) mg/dl BUN (6-23) mg/dl Creatinine (0.6-1.4) mg/dl POC Creatinine (0.6-1.3) mg/dl Est Cr Clr Drug Dosing eGFR BUN/Creatinine Ratio (10-20) Glucose (70-99(Fasting)) mg/dl POC Glucose (other) (70-99) mg/dl Lactate 1.2 (0.4-2.0) mmol/L Calcium (8.6-10.3) mg/dl POC Ioniz Calcium Eloise (1.12-1.32) mmol/l Magnesium (1.7-2.4) mg/dl Total Bilirubin (0.2-1.0) mg/dl Direct Bilirubin (0-0.2) mg/dl AST (13-39) U/L ALT (7-52) U/L Alkaline Phosphatase (34-104) U/L Troponin I High Sens 33.8 H (0-20) pg/ml Total Protein (6.0-8.3) gm/dl Albumin (3.4-5.0) gm/dl Procalcitonin (0-0.5) ng/ml Urine Color Dark Yellow Urine Appearance Turbid A (Clear) Urine pH 5.5 (4.5-7.5) Ur Specific [place] 1.014 (1.000-1.030) Urine Protein 2+ H (Negative) Urine Glucose (UA) Negative (Negative) Urine Ketones Negative (Negative) Urine Blood 2+ H (Negative) Urine Nitrite Positive A (Negative) Urine Bilirubin Negative (Negative) Urine Urobilinogen Negative (Negative) Ur Leukocyte Esterase 3+ H (Negative) Urine WBC (Auto) >50 H (0-5) /hpf Urine RBC (Auto) 0-2 (0-2) /hpf U Hyaline Cast (Auto) 11-20 H (0-2) /lpf U Epithel Cells (Auto) 0-2 (0-2) /hpf Urine Bacteria (Auto) 3+ H (None Seen) Hyaline Casts Present A (None Presnt) /lpf Urine Comment Nasal Screen MRSA (PCR) Negative (Negative) Adenovirus (PCR) (NotDetected) B. pertussis DNA (PCR) (NotDetected) B.parapertussis DNA PCR (NotDetected) C. pneumoniae DNA (PCR) (NotDetected) Coronavirus OC43 (PCR) (NotDetected) Coronavirus HKU1 (PCR) (NotDetected) Coronavirus 229E (PCR) (NotDetected) SARS-CoV-2 (PCR) (NotDetected) Coronavirus NL63 (PCR) (NotDetected) Enterobacterales (PCR) (NotDetected) E. coli (PCR) (NotDetected) Human Metapneumovir PCR (NotDetected) Influenza Type A (PCR) (NotDetected) Influenza Type B (PCR) (NotDetected) M. pneumoniae (PCR) (NotDetected) Parainfluenza 1 (PCR) (NotDetected) Parainfluenza 2 (PCR) (NotDetected) Parainfluenza 3 (PCR) (NotDetected) Parainfluenza 4 (PCR) (NotDetected) RSV (PCR) (NotDetected) Entero/Rhino (PCR) (NotDetected) mcr-1 Colistin Res Gene PCR (NotDetected) blaIMP Car res Gene PCR (NotDetected) KPC-Carbap Res Gene PCR (NotDetected) blaNDM Car Res Gene PCR (NotDetected) OXA-48 Carbapenem Resis Gene (PCR) (NotDetected) blaVIM Car Res Gene PCR (NotDetected) CTX-M Gene Resistance (PCR) (NotDetected) Bld Cult ID Panel PCR (NotDetected) Blood Parasites ID 06/24/25 06/24/25 06/24/25 Range/Units 15:56 15:30 15:26 WBC 22.46 H (4.8-10.8) K/ul RBC 4.16 L (4.70-6.10) M/uL Hgb 12.6 L (14.0-18.0) g/dl POC Hgb 13.9 L (14.0-18.0) g/dl Hct 37.1 L (42.0-52.0) % POC Hct 41 L (42-52) % MCV 89.2 (80.0-100.0) fL MCH 30.3 (25.0-34.0) pg MCHC 34.0 (32.0-36.0) g/dL RDW Std Deviation 46.0 (36.4-46.3) fL RDW Coeff of Maria Del Carmen 14.3 (11.5-14.5) % Plt Count 249 (130-400) K/uL MPV 10.4 (9.4-12.4) fL Immature Gran % (Auto) 1.5 % Neut % (Auto) 85.3 % Lymph % (Auto) 2.7 % [facility] [place] % (Auto) 10.3 % Eos % (Auto) 0.0 % Baso % (Auto) 0.2 % Neut # (Auto) 19.14 H (1.40-6.50) K/uL Lymph # (Auto) 0.61 L (1.20-3.40) K/uL [facility] # (Auto) 2.32 H (0.11-0.59) K/uL Eos # (Auto) 0.01 (0.00-0.50) K/uL Baso # (Auto) 0.05 (0.00-0.20) K/uL Immature Gran # (Auto) 0.33 H (0.01-0.20) K/uL Absolute Nucleated RBC Nucleated RBC % (auto) Neutrophils % (Manual) Band Neutrophils % Lymphocytes % (Manual) Prolymphocyte % Reactive Lymphs % (Man) Monocytes % (Manual) Eosinophils % (Manual) Basophils % (Manual) Metamyelocytes % (Man) Myelocytes % (Man) Promyelocytes % (Man) Blast Cells % (Manual) Plasma Cell % (Manual) Other Cells % Nucleated RBC % Neutrophils # (Manual) Band Neutrophils # Total Absolute Neuts Lymphocytes # (Manual) Prolymphocyte # Reactive Lymphs # Total Abs Lymphocytes Monocytes # (Manual) Eosinophils # (Manual) Basophils # (Manual) Metamyelocytes # (Man) Myelocytes # (Manual) Promyelocytes # (Man) Blast Cells # (Man) Plasma Cell # (Manual) Other Cells # Nucleated RBCs # (Man) Hypersegmented Neuts Hyposegmented Neuts Hypogranular Neuts Large Granular Lymphs # Lrg Granular Lymphs Hairy Cells Smudge Cells Toxic Granulation Toxic Vacuolation Dohle Bodies Zachary Rods Platelet Estimate Hypogranular Platelets Giant Platelets Platelet Satelliting RBC Morphology Polychromasia Hypochromasia Poikilocytosis Basophilic Stippling Anisocytosis Microcytosis Macrocytosis Spherocytes Pappenheimer Bodies Sickle Cells Target Cells Tear Drop Cells Ovalocytes Stomatocytes Alvarez-[place] Bodies Echinocytes Acanthocytes (Spur) Rouleaux RBC Agglutinates Schistocytes Sezary Cell PT 15.5 H (9.0-12.0) Seconds INR 1.5 H (0.9-1.1) POC Sodium 132 L (135-144) mmol/L Sodium 131 L (136-145) mmol/L POC Potassium 4.8 (3.3-5.0) mmol/L Potassium 4.7 (3.5-5.1) mmol/L POC Chloride 102 (101-112) mmol/L Chloride 98 (98-107) mmol/L Carbon Dioxide 22 (21-32) mmol/L POC Total CO2 21 L (24-31) mmol/L Anion Gap 11 (3-11) POC Anion Gap 16.0 (16-25) mmol/L POC BUN 41 H (7-18) mg/dl BUN 46 H (6-23) mg/dl Creatinine 2.90 H (0.6-1.4) mg/dl POC Creatinine 3.1 H (0.6-1.3) mg/dl Est Cr Clr Drug Dosing Not Reportable eGFR 21.34 BUN/Creatinine Ratio 15.9 (10-20) Glucose 117 H (70-99(Fasting)) mg/dl POC Glucose (other) 115 H (70-99) mg/dl Lactate 3.6 H* (0.4-2.0) mmol/L Calcium 9.1 (8.6-10.3) mg/dl POC Ioniz Calcium [place]oise 1.09 L (1.12-1.32) mmol/l Magnesium 1.8 (1.7-2.4) mg/dl Total Bilirubin 2.4 H (0.2-1.0) mg/dl Direct Bilirubin 0.7 H (0-0.2) mg/dl AST 19 (13-39) U/L ALT 18 (7-52) U/L Alkaline Phosphatase 137 H (34-104) U/L Troponin I High Sens 33.6 H (0-20) pg/ml Total Protein 7.6 (6.0-8.3) gm/dl Albumin 3.7 (3.4-5.0) gm/dl Procalcitonin 5.44 H (0-0.5) ng/ml Urine Color Urine Appearance (Clear) Urine pH (4.5-7.5) Ur Specific [place] (1.000-1.030) Urine Protein (Negative) Urine Glucose (UA) (Negative) Urine Ketones (Negative) Urine Blood (Negative) Urine Nitrite (Negative) Urine Bilirubin (Negative) Urine Urobilinogen (Negative) Ur Leukocyte Esterase (Negative) Urine WBC (Auto) (0-5) /hpf Urine RBC (Auto) (0-2) /hpf U Hyaline Cast (Auto) (0-2) /lpf U Epithel Cells (Auto) (0-2) /hpf Urine Bacteria (Auto) (None Seen) Hyaline Casts (None Presnt) /lpf Urine Comment Nasal Screen MRSA (PCR) (Negative) Adenovirus (PCR) Not Detected (NotDetected) B. pertussis DNA (PCR) Not Detected (NotDetected) B.parapertussis DNA PCR Not Detected (NotDetected) C. pneumoniae DNA (PCR) Not Detected (NotDetected) Coronavirus OC43 (PCR) Not Detected (NotDetected) Coronavirus HKU1 (PCR) Not Detected (NotDetected) Coronavirus 229E (PCR) Not Detected (NotDetected) SARS-CoV-2 (PCR) Not Detected (NotDetected) Coronavirus NL63 (PCR) Not Detected (NotDetected) Enterobacterales (PCR) DETECTED A (NotDetected) E. coli (PCR) DETECTED A (NotDetected) Human Metapneumovir PCR Not Detected (NotDetected) Influenza Type A (PCR) Not Detected (NotDetected) Influenza Type B (PCR) Not Detected (NotDetected) M. pneumoniae (PCR) Not Detected (NotDetected) Parainfluenza 1 (PCR) Not Detected (NotDetected) Parainfluenza 2 (PCR) Not Detected (NotDetected) Parainfluenza 3 (PCR) Not Detected (NotDetected) Parainfluenza 4 (PCR) Not Detected (NotDetected) RSV (PCR) Not Detected (NotDetected) Entero/Rhino (PCR) Not Detected (NotDetected) mcr-1 Colistin Res Gene PCR Not Detected (NotDetected) blaIMP Car res Gene PCR Not Detected (NotDetected) KPC-Carbap Res Gene PCR Not Detected (NotDetected) blaNDM Car Res Gene PCR Not Detected (NotDetected) OXA-48 Carbapenem Resis Gene (PCR) Not Detected (NotDetected) blaVIM Car Res Gene PCR Not Detected (NotDetected) CTX-M Gene Resistance (PCR) Not Detected (NotDetected) Bld Cult ID Panel PCR See PCR Comment (NotDetected) Blood Parasites ID Medications Administered Current Inpatient Medications Digoxin (Digoxin 0.125 Mg Tab) 0.125 mg PO [id number] [facility] Stop: 07/26/25 15:59 Famotidine (Famotidine 20 Mg Tab) 20 mg PO DAILY [facility] Stop: 07/25/25 08:59 Last Admin: 06/25/25 08:11 Dose: 20 mg Daptomycin 500 mg/ Syringe 10 mls @ 5 mls/min IV Q48H [facility]; Protocol Stop: 07/06/25 20:59 Sodium Chloride (Nss) 1,000 mls @ 80 mls/hr IV .[id number] [facility] Stop: 06/28/25 00:40 Last Admin: 06/25/25 01:00 Dose: 80 mls/hr Cefepime HCl (Maxipime 2000mg) 1,000 mg in 10 mls @ 5 mls/min IV Q12H [facility]; Protocol Stop: 07/05/25 03:59 Last Admin: 06/25/25 03:14 Dose: 5 mls/min Levetiracetam (Levetiracetam 500 Mg/5 Ml Vial) 500 mg IV Q12H [facility] Stop: 07/25/25 08:59 Last Admin: 06/25/25 08:12 Dose: 500 mg Levothyroxine Sodium (Levothyroxine Sodium 50 Mcg Tablet) [facility]: 07/25/25 06:29 Last Admin: 06/25/25 05:43 Dose: 50 mcg Nitroglycerin (Nitroglycerin Sl 0.4 Mg/Tab Tab) 0.4 mg SL Q5M PRN PRN Reason: Chest Pain Stop: 07/25/25 00:40 Ondansetron HCl (Ondansetron Inj 2 Mg/Ml 2 Ml Vial) 4 mg IV Q6H PRN PRN Reason: Nausea Stop: 07/25/25 00:40 Rosuvastatin Calcium (Rosuvastatin Calcium 10 Mg Tab) 10 mg PO DAILY [facility] Stop: 07/25/25 08:59 Last Admin: 06/25/25 08:12 Dose: 10 mg
--- NOTE | 2025-06-25 10:17 | Urology Consultation ---
Date of Consultation June 25, 2025 Assessment & Plan (1) SAVANNAH (acute kidney injury): (2) Acute on chronic urinary retention: (3) Acute UTI (urinary tract infection): (4) Bilateral hydronephrosis: Plan Afebrile hd improving 80M with enlarged prostate suspected urosepsis and chronic urinary retention with bilateral hydronephrosis, now with very low suspicion of stone and improving with medical management. - please start flomax when BP acceptable as per primary team continue this as outpatient - maintain campos pending outpatient assessment do not perform trial of void retention is compromising renal function to at least some degree - agree with empiric treatment of UTI / sepsis while definitive cultures pending, appears to be growing e coli and enteroccoccus - please call with questions - thank you for allowing me to participate in the care of this pleasant patient History of Present Illness Reason for Consultation: urosepsis b/l hydro ? ureteral stones Attending Physician: Judson Carlson MD History of Present Illness 80M with PMH significant from standpoint for CKDIII, was brought in because of AMS. As per for last 3 days patient was very fatigued. In the ER patient was initially tachycardic, tachypneic and hypoxic. With oxygen his hypoxia improved. Patient was hypotensive and improved with a fluid bolus. WBC was 22. lactic acid 3.6 and repeat 1.2. Procalcitonin 5.4. UA was positive. SAVANNAH with cr 2.9. Respiratory bio fire negative. CTAP showed moderate bilateral hydroureteronephrosis and a question of ureteral stones study limited by artifact from hip replacement. CT reviewed personally by this author noted to have calcification in region of left ureter but to have bilateral HUN and large bladder diverticuli more consistent with outlet obstruction, additionally prior imaging reports obtained showing no stones and patients family denies history of urolithiasis patient now much improved with fluids abx campos and cr downtrending vitals improving patient feeling better. Prior imaging at [facility] now obtained showing similar calcification in region left ureter 5 years prior highly unlikely that this is ureteral stone Patient now more lucid denies Denies abdominal pain or prior stones. Patient agrees he does not empty well and this has been longstanding problem though does not appear to have been treated for same Allergies Allergy/AdvReac Type Severity Reaction Status Date / Time No Known Allergies Allergy Unverified 06/24/25 15:45 Home Medications Medication Instructions Recorded Confirmed Type apixaban 5 mg tablet (Eliquis) 5 mg PO BID 06/24/25 06/24/25 History digoxin 125 mcg (0.125 mg) tablet 0.125 mg PO UD 06/24/25 06/24/25 History famotidine 20 mg tablet 20 mg PO DAILY 06/24/25 06/24/25 History furosemide 20 mg tablet 20 mg PO DAILY 06/24/25 06/24/25 History levetiracetam 750 mg tablet 750 mg PO BID 06/24/25 06/24/25 History levothyroxine 50 mcg tablet 50 mcg PO DAILY 06/24/25 06/24/25 History lisinopril 5 mg tablet 5 mg PO DAILY 06/24/25 06/24/25 History methotrexate sodium 2.5 mg tablet 2.5 mg PO UD 06/24/25 06/24/25 History rosuvastatin 10 mg tablet 10 mg PO DAILY 06/24/25 06/24/25 History Patient History Social History Smoking Status: Never smoker Hx Alcohol Use: No Hx Substance Use: No Preferred Language: Belarusian Communication Ability: Effective Wireless Internet Installer Required: No Beliefs That Will Affect Care: None Current Living Situation: Spouse Feels Safe at Home: Yes Safety Concerns: Feels Safe At This Time Assistive Devices: Cane and Walker Physical Exam Physical Exam: Gen: NAD, sleeping Psych: cooperative responds appropriately Abd: Nontender nondistended, neg b/l cva tenderness : campos in place cloudy urine Results & Data Vital Signs (Past 12 Hours) Vital Signs Temp Pulse Pulse Resp BP BP Pulse Ox 06/25/25 08:15 36.6 C 98 H 18 116/71 97 06/25/25 07:16 90 06/25/25 02:31 36.7 C 75 18 113/69 97 06/25/25 00:41 06/25/25 00:41 91 H 06/25/25 00:26 36.7 C 95 H 16 141/63 H 99 06/24/25 23:18 80 20 82/59 L 99 O2 Del Method 06/25/25 08:15 Room Air 06/25/25 07:16 06/25/25 02:31 Room Air 06/25/25 00:41 Room Air 06/25/25 00:41 06/25/25 00:26 Room Air 10/11/25 23:18
[2025-06-25] MEDS: APIXABAN 5 MG TABLET PO SCH (12:17)
[2025-06-26 06:28] LABS: Hematocrit (blood only) 29.3 % (42.0-52.0); Hemoglobin 10.1 g/dl (14.0-18.0); Immature Granulocytes # (auto) 0.05 K/uL (0.01-0.20); Immature Granulocytes % (auto) 0.5 %; Mean Corpuscular Hemoglobin 30.6 pg (25.0-34.0); Mean Corpuscular Volume 88.8 fL (80.0-100.0); Platelet Count 193 K/uL (130-400); RDW Standard Deviation 45.1 fL (36.4-46.3); Red Blood Count 3.30 M/uL (4.70-6.10); White Blood Count 9.61 K/ul (4.8-10.8)
[2025-06-26 06:56] LABS: Anion Gap 7.0 (3-11); Blood Urea Nitrogen 32.0 mg/dl (6-23); Calcium 7.8 mg/dl (8.6-10.3); Carbon Dioxide 19.0 mmol/L (21-32); Chloride 108.0 mmol/L (98-107); Creatinine Clr Calc Pharmacy 35.1 ml/min; Glucose 87.0 mg/dl (70-99(Fasting)); Magnesium 1.8 mg/dl (1.7-2.4); Potassium 4.2 mmol/L (3.5-5.1); Sodium 134.0 mmol/L (136-145)
--- NOTE | 2025-06-26 08:22 | Hospitalist Progress Note ---
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 As per for last 3 days patient was very fatigued. Was feeling weak but he was working in the back yard. Last night he had epistaxis but that got resolved. Today planned to go to football match but patient seemed confused. He seemed picking up things in the air. He could not get up and walk and was feeling short of breath when patient was brought to the ER. In the ER patient was initially tachycardic, tachypneic and hypoxic. With oxygen his hypoxia improved. Patient was hypotensive and improved with a fluid bolus. His WBC was 22. Initial lactic acid 3.6 and repeat is 1.2. Procalcitonin 5.4. UA was positive. Having SAVANNAH with creatinine of 2.9. Respiratory bio fire negative. CT of abdomen pelvis showed moderate bilateral hydroureteronephrosis and a question of ureteral stones. ER discussed CT scan findings with urology on-call and seems reviewed images and recommended to notify them again if Patient condition deteriorates.Patient is alert and awake and oriented. Could tell his name. Could tell his date of . Knows that he is in the hospital. Could tell current month and year but took some time. Denies any headache. Denies chest pain. No runny nose or sore throat. No cough. Denies abdominal pain. states patient micturates frequently and in small amounts. Has some loose stools today. In the ER he was spiking temperature. Currently his blood pressure and heart rates improved. Severe sepsis Bacteremia, Gram negat. From acute UTI Immunocompromised state as patient on methotrexate Presents with tachycardia, tachypnea, hypotension, hypoxia and fever WBC 22. Procalcitonin 5.4. Troponin 33. INR 1.5 Initial lactic acid 3.6 and repeat 1.2 UA is positive Ucultx + E.coli Blood cultx - posit. for gram negat. bacilli Respiratory BioFire negative CT abdomen pelvis showing moderate bilateral hydroureteronephrosis. Question of indeterminant for ureteral stones. Urology aware Valladares ordered in ER Received cefepime and 3 L fluid bolus Blood pressure and tachycardia improved. Oxygenating okay currently Will Closely monitor the hemodynamics If worsening will notify urology again Started on Cefepime and Daptomycin - > will switch now ceftriaxone Will follow the cultures Has hx of bioprost. valve and hx of previous sepsis/ bacteremia -> will Obtain echo, and consult ID Closely monitoring in telemetry 06/25 Blood cultx posit. Will repeat cultx. WBC down from 22k to 15 k. Cont. abx, follow cultx 06/26 U cultx - posit. for E.coli - switch from cefepime + Dapto to ceftriaxone SAVANNAH Presented with creatinine 2.9 --> now improved to 1.5 Baseline creatinine 1.2-1.4 Mostly from sepsis Hold lisinopril and Lasix Avoid nephrotoxic agents Will follow repeat labs Hyponatremia Sodium 131 on admission Now Na 136 Will follow labs Elevated troponin Troponin 33.6 and repeat is 33.8 Mostly demand ischemia from sepsis Will follow serial enzymes Elevated LFTs Total bilirubin 2.4. 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 On digoxin 3 times a week On Eliquis - resume as no procedure planned at this time Will closely monitor History of partial complex seizures On Keppra 750 mg twice daily at home Adjusted to IV Keppra 500 mg twice daily renal dosing Hypothyroidism On Synthyroid Hyperlipidemia On statin [employer] vasculitis On methotrexate which he takes once a week on Thursday Currently will hold for sepsis Hypertension Currently in sepsis will hold lisinopril GERD On famotidine CAD status post PCI to LAD Eliquis and statin History of heart failure with reduced EF but normalized of 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 Right ventricle cavity severely dilated. Right ventricular systolic function is severely reduced. Significant aortic valve regurgitation is absent. Severe tricuspid regurgitation is present. Holding Lasix Getting fluids Will monitor for volume overload DVT prophylaxis - Eliquis scds Disposition - Telemetry Full code. Admission and Anticipated Discharge Date Admission Date: June 24, 2025 Subjective Pt seen in follow up of sepsis, UTI, bacteremia In ED also found in Afib w/RVR, pt has hx of chronic afib Urology was consulted in ED given abnormal CT images - procedures needed at this time Currently pt is sitting up in bed in NAD, reports feeling somewhat better. He knows he is in the hospital, and can tell me that he was going to [place] but then fell. Today pt's is present at the bedside and also provides hx - pt had sepsis before. Currently denies any chest pain, shortness of breath, or abdominal pain, does not have flank pain. Hx of bioprost. valve. Review of Systems Review of Systems: All systems reviewed & are unremarkable except as noted in Subjective Physical Exam Physical Exam: General- WD/WN elderly M Not in distress. Head- atraumatic Eyes- PERRL. Neck- supple, no JVD. Lungs- clear to auscultation no wheezing or crackles Heart- regular rhythm; no murmur Abdomen- normal bowel sounds, soft, nontender, no distension Extremities- no pretibial edema, no erythema seen. (right leg short and atrophied. Has right foot drop.- per previous provider) Neuro- alert, oriented x 3; PERRL, no facial palsy; no dysarthria; moves extremities Results & Data Results & Data Vital Signs (Past 12 Hours) Vital Signs Temp Pulse Pulse Resp BP Pulse Ox O2 Del Method 06/26/25 08:06 88 06/26/25 07:26 36.7 C 59 L 18 109/73 96 Room Air 06/26/25 03:25 37 C 86 18 107/69 96 Room Air 06/25/25 23:14 36.6 C 85 20 117/76 97 Room Air 06/25/25 22:00 83 Laboratory Results 06/26/25 06/25/25 06/25/25 Range/Units 05:28 19:25 10:45 WBC 9.61 (4.8-10.8) K/ul RBC 3.30 L (4.70-6.10) M/uL Hgb 10.1 L (14.0-18.0) g/dl Hct 29.3 L (42.0-52.0) % MCV 88.8 (80.0-100.0) fL MCH 30.6 (25.0-34.0) pg MCHC 34.5 (32.0-36.0) g/dL RDW Std Deviation 45.1 (36.4-46.3) fL RDW Coeff of Maria Del Carmen 13.8 (11.5-14.5) % Plt Count 193 (130-400) K/uL MPV 11.2 (9.4-12.4) fL Immature Gran % (Auto) 0.5 % Neut % (Auto) 77.7 % Lymph % (Auto) 4.4 % [place] % (Auto) 16.1 % Eos % (Auto) 0.9 % Baso % (Auto) 0.4 % Neut # (Auto) 7.46 H (1.40-6.50) K/uL Lymph # (Auto) 0.42 L (1.20-3.40) K/uL [place] # (Auto) 1.55 H (0.11-0.59) K/uL Eos # (Auto) 0.09 (0.00-0.50) K/uL Baso # (Auto) 0.04 (0.00-0.20) K/uL Immature Gran # (Auto) 0.05 (0.01-0.20) K/uL Sodium 134 L (136-145) mmol/L Potassium 4.2 (3.5-5.1) mmol/L Chloride 108 H (98-107) mmol/L Carbon Dioxide 19 L (21-32) mmol/L Anion Gap 7 (3-11) BUN 32 H (6-23) mg/dl Creatinine 1.74 H D (0.6-1.4) mg/dl Est Cr Clr Drug Dosing 35.1 ml/min eGFR 39.39 BUN/Creatinine Ratio 18.4 (10-20) Glucose 87 (70-99(Fasting)) mg/dl Calcium 7.8 L (8.6-10.3) mg/dl Phosphorus 3.1 (2.5-4.9) mg/dl Magnesium 1.8 (1.7-2.4) mg/dl Total Bilirubin (0.2-1.0) mg/dl Direct Bilirubin (0-0.2) mg/dl AST (13-39) U/L ALT (7-52) U/L Alkaline Phosphatase (34-104) U/L Troponin I High Sens 22.3 H 19.3 (0-20) pg/ml Total Protein (6.0-8.3) gm/dl Albumin (3.4-5.0) gm/dl 06/25/25 Range/Units 06:40 WBC (4.8-10.8) K/ul RBC (4.70-6.10) M/uL Hgb (14.0-18.0) g/dl Hct (42.0-52.0) % MCV (80.0-100.0) fL MCH (25.0-34.0) pg MCHC (32.0-36.0) g/dL RDW Std Deviation (36.4-46.3) fL RDW Coeff of Maria [place] Carmen (11.5-14.5) % Plt Count (130-400) K/uL MPV (9.4-12.4) fL Immature Gran % (Auto) % Neut % (Auto) % Lymph % (Auto) % [place] % (Auto) % Eos % (Auto) % Baso % (Auto) % Neut # (Auto) (1.40-6.50) K/uL Lymph # (Auto) (1.20-3.40) K/uL [place] # (Auto) (0.11-0.59) K/uL Eos # (Auto) (0.00-0.50) K/uL Baso # (Auto) (0.00-0.20) K/uL Immature Gran # (Auto) (0.01-0.20) K/uL Sodium (136-145) mmol/L Potassium (3.5-5.1) mmol/L Chloride (98-107) mmol/L Carbon Dioxide (21-32) mmol/L Anion Gap (3-11) BUN (6-23) mg/dl Creatinine (0.6-1.4) mg/dl Est Cr Clr Drug Dosing ml/min eGFR BUN/Creatinine Ratio (10-20) Glucose (70-99(Fasting)) mg/dl Calcium (8.6-10.3) mg/dl Phosphorus (2.5-4.9) mg/dl Magnesium (1.7-2.4) mg/dl Total Bilirubin 1.7 H (0.2-1.0) mg/dl Direct Bilirubin 0.6 H (0-0.2) mg/dl AST 17 (13-39) U/L ALT 12 (7-52) U/L Alkaline Phosphatase 119 H (34-104) U/L Troponin I High Sens (0-20) pg/ml Total Protein 6.0 D (6.0-8.3) gm/dl Albumin 3.0 L (3.4-5.0) gm/dl Medications Administered Current Inpatient Medications Apixaban (Apixaban 5 Mg Tablet) 5 mg PO BID [facility] Stop: 07/25/25 12:14 Last Admin: 06/25/25 20:22 Dose: 5 mg Digoxin (Digoxin 0.125 Mg Tab) 0.125 mg PO [id number] [facility] Stop: 07/26/25 15:59 Famotidine (Famotidine 20 Mg Tab) 20 mg PO DAILY [facility] Stop: 07/25/25 08:59 Last Admin: 06/25/25 08:11 Dose: 20 mg Daptomycin 500 mg/ Syringe 10 mls @ 5 mls/min IV Q48H [facility]; Protocol Stop: 07/06/25 20:59 Sodium Chloride (Nss) 1,000 mls @ 80 mls/hr IV .[id number] [facility] Stop: 06/28/25 00:40 Last Admin: 06/25/25 23:26 Dose: 80 mls/hr Cefepime HCl (Maxipime 2000mg) 1,000 mg in 10 mls @ 5 mls/min IV Q12H [facility]; Protocol Stop: 07/05/25 03:59 Last Admin: 06/26/25 03:30 Dose: 5 mls/min Levetiracetam (Levetiracetam 500 Mg/5 Ml Vial) 500 mg IV Q12H [facility] Stop: 07/25/25 08:59 Last Admin: 06/25/25 20:23 Dose: 500 mg Levothyroxine Sodium (Levothyroxine Sodium 50 Mcg Tablet) 50 mcg PO DAILYBB [facility] Stop: 07/25/25 06:29 Last Admin: 06/26/25 05:31 Dose: 50 mcg Nitroglycerin (Nitroglycerin Sl 0.4 Mg/Tab Tab) 0.4 mg SL Q5M PRN PRN Reason: Chest Pain Stop: 07/25/25 00:40 Ondansetron HCl (Ondansetron Inj 2 Mg/Ml 2 Ml Vial) 4 mg IV Q6H PRN PRN Reason: Nausea Stop: 07/25/25 00:40 Rosuvastatin Calcium (Rosuvastatin Calcium 10 Mg Tab) 10 mg PO DAILY [facility] Stop: 07/25/25 08:59 Last Admin: 06/25/25 08:12 Dose: 10 mg
[2025-06-26] MEDS: DIGOXIN 0.125 MG TAB PO SCH (16:15)
[2025-06-26] MEDS ORDERED: DAPTOmycin 500 MG in SYRINGE 0 ML IV SCH (21:00)
[2025-06-27] MEDS: cefTRIAXone SODIUM 2,000 MG/50 ML BAG IV SCH (04:17)
[2025-06-27 06:25] LABS: Hematocrit (blood only) 30.1 % (42.0-52.0); Hemoglobin 10.2 g/dl (14.0-18.0); Mean Corpuscular Hemoglobin 30.0 pg (25.0-34.0); Mean Corpuscular Volume 88.5 fL (80.0-100.0); Platelet Count 219 K/uL (130-400); RDW Standard Deviation 47.6 fL (36.4-46.3); Red Blood Count 3.40 M/uL (4.70-6.10); White Blood Count 8.03 K/ul (4.8-10.8)
[2025-06-27 06:39] LABS: Anion Gap 7.0 (3-11); Blood Urea Nitrogen 31.0 mg/dl (6-23); Calcium 8.0 mg/dl (8.6-10.3); Carbon Dioxide 19.0 mmol/L (21-32); Chloride 110.0 mmol/L (98-107); Creatinine Clr Calc Pharmacy 41.7 ml/min; Glucose 92.0 mg/dl (70-99(Fasting)); Magnesium 1.8 mg/dl (1.7-2.4); Potassium 4.2 mmol/L (3.5-5.1); Sodium 136.0 mmol/L (136-145)
--- NOTE | 2025-06-27 08:49 | Hospitalist Progress Note ---
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 As per for last 3 days patient was very fatigued. Was feeling weak but he was working in the back yard. Last night he had epistaxis but that got resolved. Today planned to go to football match but patient seemed confused. He seemed picking up things in the air. He could not get up and walk and was feeling short of breath when patient was brought to the ER. In the ER patient was initially tachycardic, tachypneic and hypoxic. With oxygen his hypoxia improved. Patient was hypotensive and improved with a fluid bolus. His WBC was 22. Initial lactic acid 3.6 and repeat is 1.2. Procalcitonin 5.4. UA was positive. Having SAVANNAH with creatinine of 2.9. Respiratory bio fire negative. CT of abdomen pelvis showed moderate bilateral hydroureteronephrosis and a question of ureteral stones. ER discussed CT scan findings with urology on-call and seems reviewed images and recommended to notify them again if Patient condition deteriorates.Patient is alert and awake and oriented. Could tell his name. Could tell his date of . Knows that he is in the hospital. Could tell current month and year but took some time. Denies any headache. Denies chest pain. No runny nose or sore throat. No cough. Denies abdominal pain. states patient micturates frequently and in small amounts. Has some loose stools today. In the ER he was spiking temperature. Currently his blood pressure and heart rates improved. Severe sepsis Bacteremia, Gram negat. From acute UTI Immunocompromised state as patient on methotrexate Presents with tachycardia, tachypnea, hypotension, hypoxia and fever WBC 22. Procalcitonin 5.4. Troponin 33. INR 1.5 Initial lactic acid 3.6 and repeat 1.2 UA is positive Ucultx + E.coli Blood cultx - posit. E. coli Respiratory BioFire negative CT abdomen pelvis showing moderate bilateral hydroureteronephrosis. Question of indeterminant for ureteral stones. Urology aware Valladares ordered in ER Received cefepime and 3 L fluid bolus on admission Blood pressure and tachycardia improved. Oxygenating okay currently Will Closely monitor the hemodynamics If worsening will notify urology again Started on Cefepime and Daptomycin - > switched to ceftriaxone after cultx back -> will switch to Unasyn per ID Will follow the cultures Has hx of bioprost. valve , pacer, and hx of previous sepsis/ bacteremia -> will Obtain echo, and consult ID Closely monitoring in telemetry 06/25 Blood cultx posit. Will repeat cultx. WBC down from 22k to 15 k. Cont. abx, follow cultx 06/26 U cultx - posit. for E.coli - switch from cefepime + Dapto to ceftriaxone 06/27 Echo - no vegetations noted ID consult 1) Bilateral hydronephrosis: (2) Acute on chronic urinary retention: (3) Severe sepsis: (4) Acute UTI (urinary tract infection): (5) Bacterial infection due to E. 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 Pt found to have E. coli bacteremia due to E. coli UTI. Pt initially started on Cefepime IV and switched to Ceftriaxone with susceptibilities returning. Plan: - Recommend Switching Ceftriaxone 2 g q24 to Unasyn 3g q6 IV for now. On discharge to switch patient to Augmentin 875 mg PO TID for high dose option to complete 10 days of total antibiotics for Upper UTI infection c/b bacteremia. SAVANNAH Presented with creatinine 2.9 --> now improved to 1.5 Baseline creatinine 1.2-1.4 Mostly from sepsis Hold lisinopril and Lasix Avoid nephrotoxic agents cont. to monitor Hyponatremia Sodium 131 on admission Now Na 136 Will follow labs Elevated troponin Troponin 33.6 and repeat is 33.8 Mostly demand ischemia from sepsis Elevated LFTs Total bilirubin 2.4. 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 On digoxin 3 times a week On Eliquis - resumed as no procedure planned at this time Will closely monitor History of partial complex seizures On Keppra 750 mg twice daily at home Adjusted to IV Keppra 500 mg twice daily renal dosing Hypothyroidism On Synthyroid Hyperlipidemia On statin [employer] MA[employer]GER vasculitis On methotrexate which he takes once a week on Thursday Currently will hold for sepsis Hypertension hold lisinopril, re-asses tmrw GERD On famotidine CAD status post PCI to LAD Eliquis and statin History of heart failure with reduced EF but normalized of 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 Right ventricle cavity severely dilated. Right ventricular systolic function is severely reduced. Significant aortic valve regurgitation is absent. Severe tricuspid regurgitation is present. Holding Lasix received fluids Will monitor for volume overload DVT prophylaxis - Eliquis scds Disposition - Telemetry Full code. Admission and Anticipated Discharge Date Admission Date: June 24, 2025 Subjective Pt seen in follow up of sepsis, UTI, bacteremia In ED also found in Afib w/RVR, pt has hx of chronic afib Urology was consulted in ED given abnormal CT images - no procedures needed at this time Currently pt is sitting up in chair, in NAD, more awake and more talkative. Yesterday, pt's was present at the bedside and also provided hx. Currently denies any chest pain, shortness of breath, or abdominal pain, does not have flank pain. Hx of bioprost. valve, pacer. Currently awaiting ID consult in his room. Review of Systems Review of Systems: All systems reviewed & are unremarkable except as noted in Subjective Physical Exam Physical Exam: General- WD/WN elderly M Not in distress. Head- atraumatic Eyes- PERRL. Neck- supple, no JVD. Lungs- clear to auscultation no wheezing or crackles Heart- regular rhythm; no murmur Abdomen- normal bowel sounds, soft, nontender, no distension Extremities- no pretibial edema, no erythema seen. (right leg short and atrophied. Has right foot drop.- per previous provider) Neuro- alert, oriented x 3; PERRL, no facial palsy; no dysarthria; moves extremities Results & Data Results & Data Vital Signs (Past 12 Hours) Vital Signs Temp Pulse Pulse Resp BP Pulse Ox O2 Del Method 06/27/25 08:00 36.5 C 95 H 36 H 136/90 99 Room Air 06/27/25 06:52 76 06/27/25 02:22 37.2 C 77 18 136/83 97 Room Air 06/26/25 22:33 36.9 C 74 18 129/78 98 Room Air 06/26/25 21:43 73 Laboratory Results 06/27/25 Range/Units 05:30 WBC 8.03 (4.8-10.8) K/ul RBC 3.40 L (4.70-6.10) M/uL Hgb 10.2 L (14.0-18.0) g/dl Hct 30.1 L (42.0-52.0) % MCV 88.5 (80.0-100.0) fL MCH 30.0 (25.0-34.0) pg MCHC 33.9 (32.0-36.0) g/dL RDW Std Deviation 47.6 H (36.4-46.3) fL RDW Coeff of Maria Del Carmen 14.6 H (11.5-14.5) % Plt Count 219 (130-400) K/uL MPV 11.0 (9.4-12.4) fL Sodium 136 (136-145) mmol/L Potassium 4.2 (3.5-5.1) mmol/L Chloride 110 H (98-107) mmol/L Carbon Dioxide 19 L (21-32) mmol/L Anion Gap 7 (3-11) BUN 31 H (6-23) mg/dl Creatinine 1.46 H (0.6-1.4) mg/dl Est Cr Clr Drug Dosing 41.7 ml/min eGFR 48.62 BUN/Creatinine Ratio 21.2 H (10-20) Glucose 92 (70-99(Fasting)) mg/dl Calcium 8.0 L (8.6-10.3) mg/dl Phosphorus 2.6 (2.5-4.9) mg/dl Magnesium 1.8 (1.7-2.4) mg/dl Medications Administered Current Inpatient Medications Apixaban (Apixaban 5 Mg Tablet) 5 mg PO BID [facility] Stop: 07/25/25 12:14 Last Admin: 06/27/25 08:09 Dose: 5 mg Digoxin (Digoxin 0.125 Mg Tab) 0.125 mg PO [id number]@1600 [facility] Stop: 07/26/25 15:59 Last Admin: 06/26/25 16:15 Dose: 0.125 mg Famotidine (Famotidine 20 Mg Tab) 20 mg PO DAILY [facility] Stop: 07/25/25 08:59 Last Admin: 06/27/25 08:11 Dose: 20 mg Sodium Chloride (Nss) 1,000 mls @ 80 mls/hr IV .[id number] [facility] Stop: 06/28/25 00:40 Last Admin: 06/26/25 23:57 Dose: 80 mls/hr Ceftriaxone Sodium (Rocephin) 2,000 mg in 50 mls @ 100 mls/hr IV Q24H [facility] Stop: 07/11/25 03:59 Last Infusion: 06/27/25 04:47 Dose: Infused Levetiracetam (Levetiracetam 500 Mg/5 Ml Vial) 500 mg IV Q12H [facility] Stop: 07/25/25 08:59 Last Admin: 06/27/25 08:10 Dose: 500 mg Levothyroxine Sodium (Levothyroxine Sodium 50 Mcg Tablet) 50 mcg PO DAILYBB [facility] Stop: 07/25/25 06:29 Last Admin: 06/27/25 05:38 Dose: 50 mcg Nitroglycerin (Nitroglycerin Sl 0.4 Mg/Tab Tab) 0.4 mg SL Q5M PRN PRN Reason: Chest Pain Stop: 07/25/25 00:40 Ondansetron HCl (Ondansetron Inj 2 Mg/Ml 2 Ml Vial) 4 mg IV Q6H PRN PRN Reason: Nausea Stop: 07/25/25 00:40 Rosuvastatin Calcium (Rosuvastatin Calcium 10 Mg Tab) 10 mg PO DAILY [facility] Stop: 07/25/25 08:59 Last Admin: 06/27/25 08:09 Dose: 10 mg
--- NOTE | 2025-06-27 10:14 | Infectious Disease Consult ---
Date of Service June 27, 2025 Telehealth Information I performed this visit using a real-time telehealth connection between my location and the patients location ([facility]). After connecting through interactive tele-video, patient was identified by name and date of and/or wristband check.Patient (or authorized healthcare retail representative) was informed that this was a telemedicine visit and it was being conducted confidentially over secure lines. My office door was closed and no one else was present in the room with me.Patient (or authorized healthcare retail representative) provided consent to proceed with the visit, expressed an understanding of privacy and security of the telemedicine visit, and gave permission to have a hospital retail representative in the room in order to assist with the visit and to conduct portions of the visit, as needed. I informed the patient (or authorized healthcare retail representative) that I reviewed their record and presented the opportunity for them to ask any questions regarding the visit today. The patient agreed to participate. Assessment & Plan (1) Bilateral hydronephrosis: (2) Acute on chronic urinary retention: (3) Severe sepsis: (4) Acute UTI (urinary tract infection): (5) Bacterial infection due to E. 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 Pt found to have E. coli bacteremia due to E. coli UTI. Pt initially started on Cefepime IV and switched to Ceftriaxone with susceptibilities returning. Plan: - Recommend Switching Ceftriaxone 2 g q24 to Unasyn 3g q6 IV for now. On discharge to switch patient to Augmentin 875 mg PO TID for high dose option to complete 10 days of total antibiotics for Upper UTI infection c/b bacteremia. - we will sign off, no need for ID clinic appointment, please contact the ID physician alterations supervisor for teledoc services if additional recommendations or questions are necessary. Thank you. 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 In the ED, pt was initially tachycardic, tachypneic and hypoxic. With oxygen his hypoxia improved. Patient was hypotensive and improved with a fluid bolus. His WBC was 22. Initial lactic acid 3.6 and repeat is 1.2. Procalcitonin 5.4. UA was positive. Having SAVANNAH with creatinine of 2.9. Respiratory bio fire negative. CT of abdomen pelvis showed moderate bilateral hydroureteronephrosis and a question of ureteral stones. ER discussed CT scan findings with urology on-call and seems reviewed images and recommended to notify them again if Patient condition deteriorates. Pt found to have E. coli bacteremia due to E. coli UTI. Pt initially started on Cefepime IV and switched to Ceftriaxone with susceptibilities returning. ID consulted for evaluation and management. Allergies Allergy/AdvReac Type Severity Reaction Status Date / Time No Known Allergies Allergy Unverified 06/24/25 15:45 Home Medications Medication Instructions Recorded Confirmed Type apixaban 5 mg tablet (Eliquis) 5 mg PO BID 06/24/25 06/24/25 History digoxin 125 mcg (0.125 mg) tablet 0.125 mg PO UD 06/24/25 06/24/25 History famotidine 20 mg tablet 20 mg PO DAILY 06/24/25 06/24/25 History furosemide 20 mg tablet 20 mg PO DAILY 06/24/25 06/24/25 History levetiracetam 750 mg tablet 750 mg PO BID 06/24/25 06/24/25 History levothyroxine 50 mcg tablet 50 mcg PO DAILY 06/24/25 06/24/25 History lisinopril 5 mg tablet 5 mg PO DAILY 06/24/25 06/24/25 History methotrexate sodium 2.5 mg tablet 2.5 mg PO UD 06/24/25 06/24/25 History rosuvastatin 10 mg tablet 10 mg PO DAILY 06/24/25 06/24/25 History Patient History Social History Smoking Status: Never smoker Hx Alcohol Use: No Hx Substance Use: No Preferred Language: Polish Communication Ability: Effective 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 Required: No Beliefs That Will Affect Care: None Current Living Situation: Spouse Feels Safe at Home: Yes Safety Concerns: Feels Safe At This Time Assistive Devices: Cane and Walker Review of Systems all negative and reviewed all ROS Physical Exam NA Results & Data Vital Signs (Past 12 Hours) Vital Signs Temp Pulse Pulse Resp BP Pulse Ox O2 Del Method 06/27/25 08:00 Room Air 06/27/25 08:00 36.5 C 95 H 36 H 136/90 99 Room Air 06/27/25 06:52 76 06/27/25 02:22 37.2 C 77 18 136/83 97 Room Air 06/26/25 22:33 36.9 C 74 18 129/78 98 Room Air Laboratory Results Urine culture on 06/24/2025 Urine Culture Final 06/26/25-0955 Organism 1 Escherichia coli [place] Count >100,000 CFU/ml Sens Sensitivities to Follow +Mix Urine Plus Low Counts of Other Mixed [place]ra E coli RX M.I.C. --- --------- Amikacin S <=16 Amox/Clav S <=8/4 Ampicillin S <=8 Amp/Sul S <=4/2 Cefazolin S <=2 Cefepime S <=2 Cefotaxime S <=2 Cefoxitin S <=8 Ceftriaxone S <=1 Cefuroxime S <=4 Ciprofloxacin S <=0.25 Ertapenem S <=0.5 Gentamicin S <=2 Levofloxacin S <=0.5 Meropenem S <=1 Nitrofurantoin S <=32 Tobramycin S <=2 Trimeth/Sulfa S <=0.5/9.5 Pip/Tazo S <=8 S = SENSITIVE I = INTERMEDIATE R = RESISTANT 06/24/25 15:39 Aerobic Blood Culture - Preliminary Blood No growth in Aerobic bottle after 48 hours. Anaerobic Blood Culture - Preliminary Escherichia coli 06/24/25 15:26 Aerobic Blood Culture - Preliminary Blood No growth in Aerobic bottle after 48 hours. Anaerobic Blood Culture - Preliminary Escherichia coli 06/25/25 12:33 Aerobic Blood Culture - Preliminary Blood No growth in Aerobic bottle after 24 hours. Anaerobic Blood Culture - Preliminary No growth in Anaerobic bottle after 24 hours. 06/25/25 12:34 Aerobic Blood Culture - Preliminary Blood No growth in Aerobic bottle after 24 hours. Anaerobic Blood Culture - Preliminary No growth in Anaerobic bottle after 24 hours. 06/24/25 18:41 Urine Culture - Final Urine,Clean Catch Escherichia coli 06/27/25 05:30 WBC 8.03 RBC 3.40 L Hgb 10.2 L Hct 30.1 L MCV 88.5 MCH 30.0 MCHC 33.9 RDW Std Deviation 47.6 H RDW Coeff of Maria Del Carmen 14.6 H Plt Count 219 MPV 11.0 Sodium 136 Potassium 4.2 Chloride 110 H Carbon Dioxide 19 L Anion Gap 7 BUN 31 H Creatinine 1.46 H Est Cr Clr Drug Dosing 41.7 eGFR 48.62 BUN/Creatinine Ratio 21.2 H Glucose 92 Calcium 8.0 L Phosphorus 2.6 Magnesium [address] abd/pelvis on 06/24/2025 IMPRESSION: Moderate bilateral hydroureteronephrosis, as above. 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 There are calcifications bilaterally in the pelvis, that are indeterminant for ureteral stones or pelvic phleboliths. Correlate with a history of pain. Electronically signed by Aftab Haq 06-24-2025 5:33 PM Medications Administered Home Medications Medication Instructions Recorded Confirmed Last Taken apixaban 5 mg tablet (Eliquis) 5 mg PO BID 06/24/25 06/24/25 Unknown digoxin 125 mcg (0.125 mg) tablet 0.125 mg PO UD 06/24/25 06/24/25 Unknown famotidine 20 mg tablet 20 mg PO DAILY 06/24/25 06/24/25 Unknown furosemide 20 mg tablet 20 mg PO DAILY 06/24/25 06/24/25 Unknown levetiracetam 750 mg tablet 750 mg PO BID 06/24/25 06/24/25 Unknown levothyroxine 50 mcg tablet 50 mcg PO DAILY 06/24/25 06/24/25 Unknown lisinopril 5 mg tablet 5 mg PO DAILY 06/24/25 06/24/25 Unknown methotrexate sodium 2.5 mg tablet 2.5 mg PO UD 06/24/25 06/24/25 Unknown rosuvastatin 10 mg tablet 10 mg PO DAILY 06/24/25 06/24/25 Unknown Active Medications Generic Name Dose Route Start Last Admin Trade Name Freq PRN Reason Stop Dose Admin Apixaban 5 mg 06/25/25 12:15 06/27/25 08:09 Apixaban 5 Mg Tablet PO 07/25/25 12:14 5 mg BID [facility] Administration Digoxin 0.125 mg 06/26/25 16:00 06/26/25 16:15 Digoxin 0.125 Mg Tab PO 07/26/25 15:59 0.125 mg [id number]@1600 [facility] Administration Famotidine 20 mg 06/25/25 09:00 06/27/25 08:11 Famotidine 20 Mg Tab PO 07/25/25 08:59 20 mg DAILY [facility] Administration Sodium Chloride 1,000 mls @ 80 mls/hr 06/25/25 00:41 06/26/25 23:57 Nss IV 06/28/25 00:40 80 mls/hr .[id number] [facility] Administration Ceftriaxone Sodium 2,000 mg in 50 mls @ 100 mls/hr 06/27/25 04:00 06/27/25 04:47 Rocephin IV 07/11/25 03:59 Infused Q24H [facility] Infusion Levetiracetam 500 mg 06/25/25 09:00 06/27/25 08:10 Levetiracetam 500 Mg/5 Ml Vial IV 07/25/25 08:59 500 mg Q12H [facility] Administration Levothyroxine Sodium 50 mcg 06/25/25 06:30 06/27/25 05:38 Levothyroxine Sodium 50 Mcg Tablet PO 07/25/25 06:29 50 mcg DAILYBB [facility] Administration Rosuvastatin Calcium 10 mg 06/25/25 09:00 06/27/25 08:09 Rosuvastatin Calcium 10 Mg Tab PO 07/25/25 08:59 10 mg DAILY [facility] Administration
[2025-06-27] MEDS: AMPICILLIN/SULBACTAM SOD 3,000 MG/100 ML BAG IV SCH (18:27)
[2025-06-28 06:21] LABS: Hematocrit (blood only) 31.1 % (42.0-52.0); Hemoglobin 10.5 g/dl (14.0-18.0); Mean Corpuscular Hemoglobin 29.8 pg (25.0-34.0); Mean Corpuscular Volume 88.4 fL (80.0-100.0); Platelet Count 195 K/uL (130-400); RDW Standard Deviation 47.4 fL (36.4-46.3); Red Blood Count 3.52 M/uL (4.70-6.10); White Blood Count 5.78 K/ul (4.8-10.8)
[2025-06-28 06:33] LABS: Anion Gap 6.0 (3-11); Blood Urea Nitrogen 24.0 mg/dl (6-23); Calcium 8.2 mg/dl (8.6-10.3); Carbon Dioxide 21.0 mmol/L (21-32); Chloride 111.0 mmol/L (98-107); Creatinine Clr Calc Pharmacy 59.8 ml/min; Glucose 82.0 mg/dl (70-99(Fasting)); Magnesium 1.7 mg/dl (1.7-2.4); Potassium 4.3 mmol/L (3.5-5.1); Sodium 138.0 mmol/L (136-145)
--- NOTE | 2025-06-28 11:18 | Hospitalist Progress Note ---
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 #Severe sepsis -Bacteremia, E. coli -Secondary to UTI -CT abdomen pelvis showing moderate bilateral hydroureteronephrosis. Question of indeterminant for ureteral stones. Urology aware Valladares ordered in ER -Sepsis resolved Plan -ID evaluated, recommended unasyn. Switch to augmentin on discharge through 07/03 -D/w , refusing SNF. Home with HC. #Hydronephrosis -Urology consulted -Recommended OP f/u with voiding trial -Flomax if able #SAVANNAH -Presented with creatinine 2.9 -Likely pre renal from sepsis -SAVANNAH resolved -Avoid nephrotoxic agents if possible #Metabolic encephalopathy -Hospital acquired delirium -Due to sepsis, uremia/SAVANNAH -Improving -AOx3 today Plan -DC sitter -Reorientation techniques -Avoid Beer's list medications #Chronic diastolic and right-sided heart failure Echo on 02/24/2025 shows EF of 55%. Right ventricle cavity severely dilated. Right ventricular systolic function is severely reduced. Significant aortic valve regurgitation is absent. Severe tricuspid regurgitation is present. Lasix held, may resume soon #Hyponatremia Mild asymptomatic monitor #Chronic atrial fibrillation -Rate controlled -On digoxin 3 times a week -On Eliquis continue #History of partial complex seizures On Keppra 750 mg twice daily at home, resume #Hypothyroidism On synthroid #Hyperlipidemia On statin #RIVETER vasculitis On methotrexate which he takes once a week on Thursday Currently will hold for sepsis, resume on DC #Hypertension Home lisinopril on hold due to sepsis, SAVANNAH Normotensive today #GERD On famotidine #CAD status post PCI to LAD Eliquis and statin #History of heart failure with reduced EF but normalized of EF post 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 Admission and Anticipated Discharge Date Admission Date: June 24, 2025 Subjective Seen this AM. sitter present. he is awake and alert and answering questions appropriately. he denies any complaints. Patient denies F/C, CP, palpitations, SOB, dyspnea, abd pain, N/V/D. updated on phone Physical Exam Physical Exam: Vitals and labs reviewed General: chronically ill appearing. NAD HEENT: EOMI, PERRLA Neck: Supple Cardiac: RRR no rubs gallops or murmurs Lungs: CTA no rhonchi wheezing or rales Abd: S NT ND BS positive : Valladares MSK: Full ROM. No obvious deformities Ext: No Edema cyanosis Skin: Warm, Dry Neuro: AOx3 No focal deficits. Psych: Normal Mood Results & Data Results & Data Vital Signs (Past 12 Hours) Vital Signs Temp Pulse Pulse Resp BP Pulse Ox O2 Del Method 06/28/25 09:59 36.3 C L 81 17 119/82 97 Room Air 06/28/25 07:40 61 06/28/25 04:00 36.3 C L 63 16 152/81 H 98 Room Air Laboratory Results Abnormal lab results 06/28/25 Range/Units 05:31 RBC 3.52 L (4.70-6.10) M/uL Hgb 10.5 L (14.0-18.0) g/dl Hct 31.1 L (42.0-52.0) % RDW Std Deviation 47.4 H (36.4-46.3) fL RDW Coeff of Maria Del Carmen 14.7 H (11.5-14.5) % Chloride 111 H (98-107) mmol/L BUN 24 H (6-23) mg/dl BUN/Creatinine Ratio 23.5 H (10-20) Calcium 8.2 L (8.6-10.3) mg/dl
[2025-06-28] MEDS: levETIRAcetam 250 MG TAB PO SCH (20:40)
[2025-06-29 06:58] LABS: Hematocrit (blood only) 33.4 % (42.0-52.0); Hemoglobin 11.1 g/dl (14.0-18.0); Mean Corpuscular Hemoglobin 29.3 pg (25.0-34.0); Mean Corpuscular Volume 88.1 fL (80.0-100.0); Platelet Count 242 K/uL (130-400); RDW Standard Deviation 46.6 fL (36.4-46.3); Red Blood Count 3.79 M/uL (4.70-6.10); White Blood Count 6.25 K/ul (4.8-10.8)
[2025-06-29 07:27] LABS: Anion Gap 6.0 (3-11); Blood Urea Nitrogen 21.0 mg/dl (6-23); Calcium 8.5 mg/dl (8.6-10.3); Carbon Dioxide 24.0 mmol/L (21-32); Chloride 107.0 mmol/L (98-107); Creatinine Clr Calc Pharmacy 59.2 ml/min; Glucose 84.0 mg/dl (70-99(Fasting)); Potassium 4.8 mmol/L (3.5-5.1); Sodium 137.0 mmol/L (136-145)
--- NOTE | 2025-06-29 11:27 | Hospitalist Progress Note ---
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 #Severe sepsis -Bacteremia, E. coli -Secondary to UTI -CT abdomen pelvis showing moderate bilateral hydroureteronephrosis. Question of indeterminant for ureteral stones. Urology aware Valladares ordered in ER -Sepsis resolved Plan -ID evaluated, recommended unasyn. Switch to augmentin on discharge through 07/03 -Waiting for PT/OT eval today. He refused yesterday -D/w , refusing SNF. Home with HC. -Anticipate DC home 06/30 #Hydronephrosis -Urology consulted -Recommended OP f/u with voiding trial -Flomax if able #SAVANNAH -Presented with creatinine 2.9 -Likely pre renal from sepsis -SAVANNAH resolved -Avoid nephrotoxic agents if possible #Metabolic encephalopathy -Hospital acquired delirium -Due to sepsis, uremia/SAVANNAH -Improving -Sitter DC 06/28 -AOx3 today Plan -Reorientation techniques -Avoid Beer's list medications #Chronic diastolic and right-sided heart failure Echo on 02/24/2025 shows EF of 55%. Right ventricle cavity severely dilated. Right ventricular systolic function is severely reduced. Significant aortic valve regurgitation is absent. Severe tricuspid regurgitation is present. 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 Admission and Anticipated Discharge Date Admission Date: June 24, 2025 Subjective Seen this AM. sitter present. he is awake and alert and answering questions appropriately. he denies any complaints. Patient denies F/C, CP, palpitations, SOB, dyspnea, abd pain, N/V/D. updated on phone Physical Exam Physical Exam: Vitals and labs reviewed General: chronically ill appearing. NAD HEENT: EOMI, PERRLA Neck: Supple Cardiac: RRR no rubs gallops or murmurs Lungs: CTA no rhonchi wheezing or rales Abd: S NT ND BS positive : Valladares MSK: Full ROM. No obvious deformities Ext: No Edema cyanosis Skin: Warm, Dry Neuro: AOx3 No focal deficits. no asterixis or tremors Psych: Normal Mood Results & Data Results & Data Vital Signs (Past 12 Hours) Vital Signs Temp Pulse Pulse Resp BP Pulse Ox O2 Del Method 06/29/25 09:00 Room Air 06/29/25 07:35 69 06/29/25 07:05 37.0 C 77 18 150/74 H 98 Room Air 06/29/25 02:28 36.8 C 65 18 140/85 99 Room Air Laboratory Results Abnormal lab results 06/29/25 Range/Units 06:15 RBC 3.79 L (4.70-6.10) M/uL Hgb 11.1 L (14.0-18.0) g/dl Hct 33.4 L (42.0-52.0) % RDW Std Deviation 46.6 H (36.4-46.3) fL RDW Coeff of Maria Del Carmen 14.6 H (11.5-14.5) % BUN/Creatinine Ratio 20.2 H (10-20) Calcium 8.5 L (8.6-10.3) mg/dl
[2025-06-29 23:06] VITALS: O2SAT 97
--- NOTE | 2025-06-30 10:00 | Discharge Summary ---
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 He was diagnosed with severe sepsis and started on empiric abx. source was UTI. Urine and blood cultures grew E. coli. ID was consulted and recommended unasyn and then switching to augmentin on discharge through 07/03. He also had SAVANNAH, secondary to obstruction. CT AP showed moderate b/l hydro and urology was consulted. campos was placed. Cr normalized. He is to f/u with urology as OP for voiding trial. His course was c/b hospital acquired delirium/metabolic encephalopathy which resolved. His declined to consider SNF placement. Home PT/OT ordered. Vitals and labs stable on day of discharge. He feels well today and wishes to go home. He has no complaints and is answering questions appropriately. #Severe sepsis -Bacteremia, E. coli -Secondary to UTI -CT abdomen pelvis showing moderate bilateral hydroureteronephrosis. Question of indeterminant for ureteral stones. Urology aware Campos ordered in ER -Sepsis resolved Plan -ID evaluated, recommended unasyn. Switch to augmentin on discharge through 07/03 -Waiting for PT/OT eval today. He refused yesterday -D/w , refusing SNF. Home with HC. -Anticipate DC home 06/30 #Hydronephrosis -Urology consulted -Recommended OP f/u with voiding trial -Flomax if able #SAVANNAH -Presented with creatinine 2.9 -Likely pre renal from sepsis -SAVANNAH resolved -Avoid nephrotoxic agents if possible #Metabolic encephalopathy -Hospital acquired delirium -Due to sepsis, uremia/SAVANNAH -Improving -Sitter DC 06/28 -AOx3 today Plan -Reorientation techniques -Avoid Beer's list medications #Chronic diastolic and right-sided heart failure Echo on 02/24/2025 shows EF of 55%. Right ventricle cavity severely dilated. Right ventricular systolic function is severely reduced. Significant aortic valve regurgitation is absent. Severe tricuspid regurgitation is present. 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 As per for last 3 days patient was very fatigued. Was feeling weak but he was working in the back yard. Last night he had epistaxis but that got resolved. Today planned to go to football match but patient seemed confused. He seemed picking up things in the air. He could not get up and walk and was feeling short of breath when patient was brought to the ER. In the ER patient was initially tachycardic, tachypneic and hypoxic. With oxygen his hypoxia improved. Patient was hypotensive and improved with a fluid bolus. His WBC was 22. Initial lactic acid 3.6 and repeat is 1.2. Procalcitonin 5.4. UA was positive. Having SAVANNAH with creatinine of 2.9. Respiratory bio fire negative. CT of abdomen pelvis showed moderate bilateral hydroureteronephrosis and a question of ureteral stones. ER discussed CT scan findings with urology on-call and seems reviewed images and recommended to notify them again if Patient condition deteriorates.Patient is alert and awake and oriented. Could tell his name. Could tell his date of . Knows that he is in the hospital. Could tell current month and year but took some time. Denies any headache. Denies chest pain. No runny nose or sore throat. No cough. Denies abdominal pain. states patient micturates frequently and in small amounts. Has some loose stools today. In the ER he was spiking temperature. Currently his blood pressure and heart rates improved. Past medical history. As mentioned above. Past surgical history. Carpal tunnel surgery. Left and right heart catheterization. Pacemaker insertion. Left inguinal hernia repair. Replacement aortic valve percutaneous.. Bilateral total hip replacement. Social history. . No smoking. No alcohol use. No drug use. Family history. Brother had diabetes. Discharge Exam Vitals and labs reviewed General: chronically ill appearing. NAD HEENT: EOMI, PERRLA Neck: Supple Cardiac: RRR no rubs gallops or murmurs Lungs: CTA no rhonchi wheezing or rales Abd: S NT ND BS positive : Campos MSK: Full ROM. No obvious deformities Ext: No Edema cyanosis Skin: Warm, Dry Neuro: AOx3 No focal deficits. no asterixis or tremors Psych: Normal Mood Updated Medication List Medication Instructions Recorded Confirmed Type apixaban 5 mg tablet (Eliquis) 5 mg PO BID 06/24/25 06/24/25 History digoxin 125 mcg (0.125 mg) tablet 0.125 mg PO UD 06/24/25 06/24/25 History famotidine 20 mg tablet 20 mg PO DAILY 06/24/25 06/24/25 History furosemide 20 mg tablet 20 mg PO DAILY 06/24/25 06/24/25 History levetiracetam 750 mg tablet 750 mg PO BID 06/24/25 06/24/25 History levothyroxine 50 mcg tablet 50 mcg PO DAILY 06/24/25 06/24/25 History lisinopril 5 mg tablet 5 mg PO DAILY 06/24/25 06/24/25 History methotrexate sodium 2.5 mg tablet 2.5 mg PO UD 06/24/25 06/24/25 History rosuvastatin 10 mg tablet 10 mg PO DAILY 06/24/25 06/24/25 History amoxicillin 875 mg-potassium 1 tab PO BID 4 days #8 tabs 06/30/25 Rx clavulanate 125 mg tablet Hospital Stay Data Consultations 06/24/25 20:01 ED Decision to Admit Stat 06/25/25 00:41 Consult Urology Routine 06/26/25 17:17 Consult Infectious Diseases Routine Diagnostic Imagining Performed 06/24/25 15:26 CT head/brain wo con Stat 06/24/25 15:28 CT cervical spine wo con Stat CT facial bones wo con Stat 06/24/25 15:49 CT abd pelvis wo con Stat Pending Results Patient Have Any Pending Studies at Discharge: No Discharge Instructions Given to Patient (Per Discharging Provider) Please follow up with urology for campos catheter removal. Dr Scot Reynolds, urology. Continue augmentin through 07/03. Resume your methotrexate on thursday Total Time Total Time Spent Total Time Spent (In Minutes): 46
[2025-06-30 11:24] VITALS: RESP 20; TEMP 97.9
[2025-06-30 15:49] VITALS: BP 161/89
[2025-06-30 16:33] VITALS: PULSE 69
== END 2025-06-30 17:31 | disposition home health service (06) | DRG 871 ==
LOC: ED 15:02 → 2S 20:47 → SUATTDRO 20:47 → 2S 23:21
DX: N13.6 Pyonephrosis; I13.0 Hypertensive heart and chronic kidney disease with heart failure and stage 1 through stage 4 chronic kidney disease, or unspecified chronic kidney disease; I24.89 Other forms of acute ischemic heart disease; Z79.01 Long term (current) use of anticoagulants; E87.1 Hypo-osmolality and hyponatremia; I77.6 Arteritis, unspecified; N17.9 Acute kidney failure, unspecified; R65.20 Severe sepsis without septic shock; A41.81 Sepsis due to Enterococcus; Z95.0 Presence of cardiac pacemaker; N20.1 Calculus of ureter; Z86.74 Personal history of sudden cardiac arrest; G40.109 Localization-related (focal) (partial) symptomatic epilepsy and epileptic syndromes with simple partial seizures, not intractable, without status epilepticus; R41.82 Altered mental status, unspecified; I48.20 Chronic atrial fibrillation, unspecified; A41.51 Sepsis due to Escherichia coli [E. coli]; N18.30 Chronic kidney disease, stage 3 unspecified; Z79.890 Hormone replacement therapy; G93.41 Metabolic encephalopathy; N40.1 Benign prostatic hyperplasia with lower urinary tract symptoms